=== PATIENT | male | born 1955 | race Caucasian/White ===

== ENCOUNTER → 2016-08-11 | Outpatient (CLI) | payer BC ==
--- NOTE | 2016-08-11 09:01 | CT ---
EXAMINATION TYPE: CT abdomen pelvis w con DATE OF EXAM: 08/11/2016 8:53 AM COMPARISON: NONE HISTORY: 61-year-old male with abdominal pain, evaluate for diverticulitis TECHNIQUE: Contiguous axial scanning of the abdomen and pelvis following administration of 100 ml Omn ipaque 300 IV contrast. Delayed images through the kidneys and coronal/sagittal reconstructions perf ormed. CT DLP: 489.1 mGycm Automated exposure control for dose reduction was used. FINDINGS: Heart is normal size without pericardial effusion. Lung bases are clear without pleural effusion. No focal liver lesion or biliary ductal dilatation. Portal venous system is patent. Gallbladder, adrenal glands, spleen, and pancreas appear within normal limits. Large cyst within the kidneys measuring up to 5.2 cm right upper pole and 8.4 cm in the left upper po le. Smaller hypodense lesions are present on both sides and [address] characterization but also likely represent cysts. There is symmetric uptake and excretion of contrast by both kidneys. No dilated small bowel, free fluid, or free air. Small fatty umbilical hernia. Normal appendix. Oral contrast has progressed to the rectum No significant diverticular disease is identified there is very mild pericolonic fat stranding along the proximal sigmoid colon, axial image 67 that could represent prominent pericolonic vessels. No abn ormal wall thickening is identified. A short segment prominent peristaltic contraction along the dist al sigmoid, axial image 66. Scattered nonenlarged mesenteric lymph nodes are present. Bladder is urine distended. Prostate gland mildly enlarged at 4.7 cm wide. Rectum appears normal. No abnormal fluid collection in the pelvis or pelvic lymphadenopathy seen. Bones: Penile prosthesis demonstrated. Mild degenerative changes of the hips and lower lumbar spine. No osseous destructive process. IMPRESSION: 1. NO SIGNIFICANT DIVERTICULAR DISEASE SEEN. 2. THERE IS VERY MILD PERICOLONIC FAT STRANDING ALONG THE PROXIMAL SIGMOID THAT COULD REPRESENT MILD INFLAMMATION RELATING TO A SHORT SEGMENT COLITIS VERSUS PROMINENT PERICOLONIC VESSELS. 3. ANNULAR NARROWING ALONG THE DISTAL SIGMOID LIKELY A PROMINENT PERISTALTIC CONTRACTION NO ABNORM AL WALL THICKENING IS SEEN HERE. CORRELATE WITH FINDINGS ON PATIENT'S ROUTINE COLONOSCOPY. 4. SMALL FATTY UMBILICAL HERNIA. 5. A LARGE RENAL CYST ON EACH SIDE MEASURING UP TO 8.4 CM ON THE LEFT.
== END | disposition home or self-care (01) ==
LOC: RADCTMAIN 06:44
PROVIDERS: ATTEND Surgery Plastic and Reconstructive Surgery
DX: K56.60 Unspecified intestinal obstruction (principal); K42.9 Umbilical hernia without obstruction or gangrene; N28.1 Cyst of kidney, acquired
CPT/HCPCS: 74177; Q9967

== ENCOUNTER 2016-09-20 06:42 | Day surgery (SDC) | payer BC ==
[2016-09-15 13:46] VITALS: BMI 25.7
[~2016-09-20 06:42] MED LIST: LACTATED RINGERS 1,000 ML IV SCH
[2016-09-20 07:14] VITALS: RESP 16; TEMP 97.6
[2016-09-20] MEDS ORDERED: PROPOFOL 10 MG/ML 20 ML VIAL IV ONE (07:26)
--- NOTE | 2016-09-20 07:27 | P.GSHP ---
History of Present Illness H&P Date: 09/20/16 CHIEF COMPLAINT: GERD HISTORY OF PRESENT ILLNESS: The patient is a 61-year-old male who presents reports gastroesophageal reflux disease. Upper endoscopy was offered for further evaluation and management. PAST MEDICAL HISTORY: Please see list. PAST SURGICAL HISTORY: Please see list. MEDICATIONS: Please see list. ALLERGIES: Please see list. SOCIAL HISTORY: No illicit drug use FAMILY HISTORY: No reports of Crohn disease or ulcerative colitis. REVIEW OF ORGAN SYSTEMS: CONSTITUTIONAL: No reports of fevers or chills. GI: Denies any blood in stools or constipation. PHYSICAL EXAM: VITAL SIGNS: Stable GENERAL: Well-developed and pleasant in no acute distress. HEENT: No scleral icterus. Extraocular movements grossly intact. Moist buccal mucosa. NECK: Supple without lymphadenopathy. CHEST: Unlabored respirations. Equal bilateral excursions. CARDIOVASCULAR: Regular rate and rhythm. Distal 2+ pulses. ABDOMEN: Soft, nondistended. MUSCULOSKELETAL: No clubbing, cyanosis, or edema. ASSESSMENT: 1. Gastroesophageal reflux disease PLAN: 1. Recommend proceeding with an upper endoscopy Past Medical History Past Medical History: Asthma, GERD/Reflux, Hyperlipidemia Additional Past Medical History / Comment(s): hiatal hernia,abdominal hernia, osteoporosis,polycythemia History of Any Multi-Drug Resistant Organisms: None Reported Past Surgical History: Hernia Repair, Orthopedic Surgery Additional Past Surgical History / Comment(s): right elbow surg. left shoulder surg. panreas scar tissue removed. eye surg. left knee repair. inguinal and incisional hernia repair Past Anesthesia/Blood Transfusion Reactions: No Reported Reaction Past Psychological History: No Psychological Hx Reported Smoking Status: Former smoker Past Alcohol Use History: Occasional Additional Past Alcohol Use History / Comment(s): quit smoking 2008,smoked approx 20yrs <1ppd Past Drug Use History: None Reported - Past Family History Mother Family Medical History: Cancer Additional Family Medical History / Comment(s): colon cancer Father Family Medical History: Coronary Artery Disease (CAD) Brother(s) Family Medical History: Coronary Artery Disease (CAD) Medications and Allergies Home Medications Medication Instructions Recorded Confirmed Type Ergocalciferol [Vitamin D2] 50,000 unit PO Q7D 05/12/16 09/20/16 History Ibandronate Sodium [Boniva] 150 mg PO QMONTH 05/12/16 09/20/16 History Multivitamin [Men's Multi-Vitamin] 1 each PO DAILY 05/12/16 09/20/16 History Lovastatin [Mevacor] 40 mg PO DAILY 05/18/16 09/20/16 History Beclomethasone Dip 80 Mcg/Puff 2 puff INHALATION BID 09/15/16 09/20/16 History [Qvar 80 mcg] Diuretic 1 tab PO DAILY 09/15/16 09/20/16 History Ferrous Sulfate [Feosol] 325 mg PO DAILY 09/15/16 09/20/16 History Allergies Allergy/AdvReac Type Severity Reaction Status Date / Time No Known Allergies Allergy Verified 09/15/16 13:36 Surgical - Exam Vital Signs Temp Pulse Resp BP Pulse Ox 97.6 F 66 16 118/78 97 09/20/16 07:12 09/20/16 07:12 09/20/16 07:12 09/20/16 07:12 09/20/16 07:12
--- NOTE | 2016-09-20 07:38 | P.PCN ---
Date of Procedure: 09/20/16 Description of Procedure: PREOPERATIVE DIAGNOSIS: Gastroesophageal reflux disease. Diaphragmatic hiatal hernia without obstruction. POSTOPERATIVE DIAGNOSIS: Gastritis. Gastroesophageal reflux disease. Diaphragmatic hiatal hernia without obstruction. OPERATION: Esophagogastroduodenoscopy with biopsies along antrum. SURGEON: Guadalupe Moore MD ANESTHESIA: MAC. INDICATIONS: The patient is a 61-year-old male who presents with a history of reflux disease. Benefits and risks of the procedure were described. Informed consent was obtained. DESCRIPTION: The patient was brought into the endoscopy suite and laid in the left lateral decubitus position. An Olympus gastroscope was passed along the posterior oropharynx down to the distal esophagus where the squamocolumnar junction was encountered at 40 cm from the incisors. The stomach was entered and retained food reflux was found. Additional findings are listed below. Biopsies with cold forceps were obtained of the antrum. The first through third portion of the duodenum was examined and unremarkable. Retroflexion of the scope confirmed Hill grade 3 lower esophageal valve. The squamocolumnar junction demostrated LA grade A erosive esophagitis. The stomach was desufflated. The patient tolerated the procedure well. FINDINGS: Squamocolumnar junction 39 cm from the incisors. Diaphragmatic hiatus at 40 cm. Hiatal hernia 1 cm. Hill grade 3 lower esophageal valve. LA grade A erosive esophagitis. No active duodenitis. RECOMMENDATIONS: Further recommendations pending results of pathology report. Upper endoscopy as needed. Recommend manometry. Plan - Discharge Summary Discharge Medication List Ergocalciferol [Vitamin D2] 50,000 unit PO Q7D 05/12/16 [History] Ibandronate Sodium [Boniva] 150 mg PO QMONTH 05/12/16 [History] Multivitamin [Men's Multi-Vitamin] 1 each PO DAILY 05/12/16 [History] Lovastatin [Mevacor] 40 mg PO DAILY 05/18/16 [History] Beclomethasone Dip 80 Mcg/Puff [Qvar 80 mcg] 2 puff INHALATION BID 09/15/16 [ History] Diuretic 1 tab PO DAILY 09/15/16 [History] Ferrous Sulfate [Feosol] 325 mg PO DAILY 09/15/16 [History] Follow up Appointment(s)/Referral(s): Guadalupe Moore MD [STAFF PHYSICIAN] - 09/20/16 9:00 am (MANOMETRY ONLY!!!! Scheduled at 9 am At [facility] this morning) Patient Instructions/Handouts: Gastroesophageal Reflux Disease (GEN) Discharge Disposition: HOME SELF-CARE
[2016-09-20 08:07] VITALS: BP 121/76; PULSE 55
== END 2016-09-20 08:30 | disposition home or self-care (01) ==
LOC: ORWHC2ENDO 06:42
PROVIDERS: ATTEND Surgery Plastic and Reconstructive Surgery
DX: K21.0 Gastro-esophageal reflux disease with esophagitis (principal); K44.9 Diaphragmatic hernia without obstruction or gangrene; K29.50 Unspecified chronic gastritis without bleeding; J45.909 Unspecified asthma, uncomplicated; E78.5 Hyperlipidemia, unspecified; M81.0 Age-related osteoporosis without current pathological fracture; Z79.83 Long term (current) use of bisphosphonates; Z79.51 Long term (current) use of inhaled steroids; Z79.899 Other long term (current) drug therapy; Z87.891 Personal history of nicotine dependence; Z80.0 Family history of malignant neoplasm of digestive organs
CPT/HCPCS: 43239; 88305; 88342; J2704

== ENCOUNTER 2016-10-05 19:11 | Inpatient (IN) | payer BC ==
[2016-10-05] MEDS ORDERED: PANTOPRAZOLE 40 MG/10 ML VIAL IV STA (19:31)
[2016-10-05] MEDS ORDERED: CHLORHEXIDINE GLUCONATE 15 ML CUP MUCOUS MEM ONE (19:31)
[2016-10-05] MEDS ORDERED: METOCLOPRAMIDE 5 MG/ML 2 ML VIAL IVP PRN (19:34)
[2016-10-05] MEDS ORDERED: ONDANSETRON 4 MG/2 ML VIAL IVP PRN (19:34)
[2016-10-05] MEDS ORDERED: ACETAMINOPHEN IV (For NPO) 1,000 MG in EMPTY BAG 1 BAG IVPB PRN (19:36)
[2016-10-05 21:59] VITALS: BMI 25.1
[2016-10-05 23:01] LABS: Basophils # (A) 0.1 k/uL (0-0.2); Basophils % (A) 1 %; CH 29.3; CHCM 33.9; Eosinophils # (A) 0.2 k/uL (0-0.7); Eosinophils % (A) 2 %; HCT 50.7 % (39.0-53.0); HDW 2.41; HGB 16.8 gm/dL (13.0-17.5); Luc # (Auto) 0.18; Luc % (Auto) 3; Lymphocytes # (A) 2.1 k/uL (1.0-4.8); Lymphocytes % (A) 29 %; MCH 28.8 pg (25.0-35.0); MCHC 33.2 g/dL (31.0-37.0); MCV 86.8 fL (80.0-100.0); Mean Platelet Volume 7.4; Monocytes # (A) 0.5 k/uL (0-1.0); Monocytes % (A) 7 %; Neutrophils # (A) 4.3 k/uL (1.3-7.7); Neutrophils % (A) 59 %; RBC 5.84 m/uL (4.30-5.90); RDW 13.7 % (11.5-15.5); WBC 7.3 k/uL (3.8-10.6); WBC (Perox) 7.27
[2016-10-05 23:13] LABS: ALT 31 U/L (21-72); AST 22 U/L (17-59); Alkaline Phosphatase 58 U/L (38-126); Anion Gap 10 mmol/L; Blood Urea Nitrogen 22 mg/dL (9-20); Calcium 9.6 mg/dL (8.4-10.2); Carbon Dioxide 27 mmol/L (22-30); Chloride 102 mmol/L (98-107); Glucose 146 mg/dL (74-99); Non-African American GFR(MDRD) >60 (>60 ml/min/1.73 sqM); Potassium 3.3 mmol/L (3.5-5.1); Sodium 139 mmol/L (137-145); Total Bilirubin 0.6 mg/dL (0.2-1.3); Total Protein 6.9 g/dL (6.3-8.2)
[2016-10-05] MEDS: LACTATED RINGERS 1,000 ML IV SCH (23:27)
[2016-10-05] MEDS: HEPARIN SODIUM,PORCINE 5,000 UNIT/ML 1 ML VIAL SQ SCH (23:29)
[2016-10-05] MEDS: HYDROmorphone 1 MG/ML 1 ML SYRINGE IVP PRN (23:36)
[2016-10-06] MEDS: LACTATED RINGERS 1,000 ML IV SCH ×3 (04:51→20:11)
[2016-10-06] MEDS: HYDROmorphone 1 MG/ML 1 ML SYRINGE IVP PRN ×3 (05:12→22:54)
[2016-10-06] MEDS ORDERED: Potassium Replacement Protocol 1 EACH MISC MISCELLANE PRN (07:18)
--- NOTE | 2016-10-06 07:35 | P.GSHP ---
History of Present Illness H&P Date: 10/05/16 Chief Complaint: Esophageal obstruction, abdominal pain CHIEF COMPLAINT: Esophageal obstruction, dysphagia. HISTORY OF PRESENT ILLNESS: Alejandro Delgado is a 61 year-old male with a symptomatic diaphragmatic hiatal hernia. He comes in with worsening dysphagia and now has esophageal obstruction. He reports severe epigastric including periumbilical abdominal pain. He is unable to tolerate anything by mouth. Incidentally, he had completed workup including manometry and previous upper endoscopy which confirmed his hiatal hernia including severe reflux disease. Given the acuity of his symptoms, he has been admitted for urgent surgical intervention. PAST MEDICAL HISTORY: Please see list. PAST SURGICAL HISTORY: Please see list. MEDICATIONS: Please see list. ALLERGIES: Please see list. SOCIAL HISTORY: No illicit drug use FAMILY HISTORY: No reports of Crohn disease or ulcerative colitis. REVIEW OF ORGAN SYSTEMS: Constitutional: No fevers or chills. Musculoskeletal: Joint stiffness including back pain. Respiratory: Asthma. Hematologic: Polycythemia vera. No reports of DVTs. HEENT: Denies any trouble with vision, hearing or nosebleeds. No difficulty swallowing. LYMPHATIC: The patient denies any lumps and bumps around the neck. ENDOCRINE: Denies any thyroid disorders. Denies any blood sugar glucose intolerance. CARDIOVASCULAR: Denies any chest pain, palpitations, or recent heart attacks. GASTROINTESTINAL: Denies fatty food intolerance. Denies change in bowel habits and gas bloat. Has reflux disease. See above. GENITOURINARY: Denies any blood in urine or increased urinary frequency. NEUROLOGIC: Denies any numbness or tingling along the distal extremities. No seizure disorders or headaches. PSYCHIATRIC: Denies any depression or suicidal ideation. PHYSICAL EXAM: GENERAL: Well developed and in some distress. HEENT: No sclera icterus. Extraocular movements grossly intact. Moist buccal mucosa. Head is atraumatic, normocephalic. Hears conversational speech. No nasal drainage. NECK: Supple without lymphadenopathy. No JV distention. CHEST: Non-labored respirations and equal bilateral excursions. CARDIOVASCULAR: Regular rate and rhythm. Palpable 2+ radial pulses. ABDOMEN: Soft. Tender along left lower quadrant and epigastrium as well as periumbilical. MUSCULOSKELETAL: No clubbing, cyanosis or edema. NEUROLOGIC: No focal or lateralizing signs. PSYCH: Appropriate affect. Alert and oriented to person, place and time. STUDIES: CT of the abdomen/pelvis was reviewed in detail and demonstrated inflammation of the left lower quadrant at his hernia site. New onset umbilical hernia identified. ASSESSMENT: 1. History of hiatal hernia, nonincarcerated with esophageal obstruction. 2. History of umbilical hernia. 3. Intraabdominal adhesions. 4. Left lower quadrant abdominal pain. 5. Gastroesophageal reflux disease. 6. Dysphagia. PLAN: 1. Urgent surgical intervention with a laparoscopic repair of incarcerated hiatal hernia advised as he now has esophageal obstruction. 2. Possibility of open technique balloon placement mesh was also reviewed. 3. Inpatient hospitalization with inpatient admission for at least 2 nights. 4. DVT prophylaxis. 5. Antibody prophylaxis. 6. Will need postoperative upper GI. 7. Comprehensive metabolic panel including CBC. 8. Twelve-lead EKG in the interim. 9. Risks of surgical intervention including injury to the lung, injury to the vagus nerves, injury to the esophagus, injury to the stomach, pneumothorax, dysphagia, recurrence, need for further surgery were reviewed. Past Medical History Past Medical History: Asthma, GERD/Reflux, Hyperlipidemia Additional Past Medical History / Comment(s): hiatal hernia,abdominal hernia, osteoporosis,polycythemia History of Any Multi-Drug Resistant Organisms: None Reported Past Surgical History: Hernia Repair, Orthopedic Surgery Additional Past Surgical History / Comment(s): right elbow surg. left shoulder surg. panreas scar tissue removed. eye surg. left knee repair. inguinal and incisional hernia repair Past Anesthesia/Blood Transfusion Reactions: No Reported Reaction Past Psychological History: No Psychological Hx Reported Smoking Status: Former smoker Past Alcohol Use History: Occasional Additional Past Alcohol Use History / Comment(s): quit smoking 2008,smoked approx 20yrs <1ppd Past Drug Use History: None Reported - Past Family History Mother Family Medical History: Cancer Additional Family Medical History / Comment(s): colon cancer Father Family Medical History: Coronary Artery Disease (CAD) Brother(s) Family Medical History: Coronary Artery Disease (CAD) Medications and Allergies Home Medications Medication Instructions Recorded Confirmed Type Ergocalciferol [Vitamin D2] 50,000 unit PO SA 05/12/16 10/05/16 History Ibandronate Sodium [Boniva] 150 mg PO QMONTH 05/12/16 10/05/16 History Multivitamin [Men's Multi-Vitamin] 1 tab PO DAILY 05/12/16 10/05/16 History Lovastatin [Mevacor] 40 mg PO HS 05/18/16 10/05/16 History Beclomethasone Dip 80 Mcg/Puff 2 puff INHALATION RT-BID 09/15/16 10/05/16 History [Qvar 80 mcg] Ferrous Sulfate [Feosol] 325 mg PO DAILY 09/15/16 10/05/16 History Calcium Carbonate [Calcium] 600 mg PO DAILY 10/05/16 10/05/16 History Chlorthalidone [Hygroton] 12.5 mg PO DAILY 10/05/16 10/05/16 History Tadalafil [Cialis] 10 mg PO DAILY PRN 10/05/16 10/05/16 History Allergies Allergy/AdvReac Type Severity Reaction Status Date / Time No Known Allergies Allergy Verified 10/05/16 22:19 Results - Labs 10/05/16 22:46 10/05/16 22:46
[2016-10-06] MEDS: HEPARIN SODIUM,PORCINE 5,000 UNIT/ML 1 ML VIAL SQ SCH ×3 (07:55→23:42)
[2016-10-06] MEDS ORDERED: POTASSIUM CHLORIDE ER 20 MEQ TAB.ER PO SCH (08:00)
[2016-10-06] MEDS ORDERED: POTASSIUM CHLORIDE 10 MEQ, LIDOCAINE 2% INJ 10 MG in SODIUM CHLORIDE 0.9% 100 ML IV SCH (08:00)
[2016-10-06 08:12] LABS: Anion Gap 9 mmol/L; Blood Urea Nitrogen 21 mg/dL (9-20); Calcium 9.3 mg/dL (8.4-10.2); Carbon Dioxide 29 mmol/L (22-30); Chloride 101 mmol/L (98-107); Glucose 94 mg/dL (74-99); Magnesium 1.8 mg/dL (1.6-2.3); Non-African American GFR(MDRD) >60 (>60 ml/min/1.73 sqM); Potassium 4.2 mmol/L (3.5-5.1); Sodium 139 mmol/L (137-145)
[2016-10-06] MEDS: MAGNESIUM SULFATE-D5W PMX 1 GM in DEXTROSE/WATER 1 100ML.BAG IVPB SCH ×2 (08:42→09:47)
[2016-10-06] MEDS ORDERED: ceFAZolin 2 GM in SODIUM CHLORIDE 0.9% 100 ML IVPB ONE (11:00)
[2016-10-06] MEDS ORDERED: HYDROcodone/APAP 5-325MG 1 EACH TAB PO PRN (14:03)
[2016-10-06] MEDS ORDERED: NALOXONE 0.4 MG/ML 1 ML VIAL IV PRN ×2 (14:03→19:46)
--- NOTE | 2016-10-06 14:03 | P.PCN ---
Date of Procedure: 10/06/16 Preoperative Diagnosis: Symptomatic cholelithiasis, epigastric abdominal pain, gastric esophageal reflux disease Postoperative Diagnosis: Same, peritoneal adhesions lower abdomen epigastrium, greater omentum to anterior abdominal wall Procedure(s) Performed: Laparoscopic cholecystectomy, esophagogastroduodenoscopy, laparoscopic lysis of adhesions Anesthesia: GETA, local Surgeon: Guadalupe Moore Estimated Blood Loss (ml): 5 Pathology: other (Gallbladder) Condition: stable Disposition: floor Operative Findings: Early gastric ulcers, gastritis along the antrum, junction 40 cm, low-grade 2 lower esophageal valve, LA grade C erosive esophagitis, moderate intra- abdominal adhesions from previous
[2016-10-06] MEDS ORDERED: KETOROLAC 30 MG/ML 1 ML VIAL IVP SCH (14:15)
[2016-10-06] MEDS ORDERED: IV FLUID CONTINUATION 1,000 ML IV ONE (16:51)
[2016-10-06] MEDS ORDERED: DEXAMETHASONE SOD PHOSPHATE 10 MG/ML 1 ML VIAL IV ONE (17:05)
[2016-10-06] MEDS ORDERED: ONDANSETRON 4 MG/2 ML VIAL IVP ONE (17:07)
[2016-10-06] MEDS ORDERED: ROCURONIUM BROMIDE 10 MG/ML 10 ML VIAL IV ONE (17:23)
[2016-10-06] MEDS ORDERED: NEOSTIGMINE 1 MG/ML 10 ML VIAL ONE (17:23)
[2016-10-06] MEDS ORDERED: HYDROmorphone (PF) 1 MG/ML ONE (17:23)
[2016-10-06] MEDS ORDERED: PROPOFOL 10 MG/ML 20 ML VIAL IV ONE (17:23)
[2016-10-06] MEDS ORDERED: SUCCINYLCHOLINE CHLORIDE 100 MG/5 ML SYR IV ONE (17:23)
[2016-10-06] MEDS ORDERED: MIDAZOLAM 2 MG/2 ML VIAL ONE (17:23)
[2016-10-06] MEDS ORDERED: fentaNYL (PF) 50 MCG/ML 2 ML AMP ONE (17:23)
[2016-10-06] MEDS ORDERED: GLYCOPYRROLATE 0.2 MG/ML 2 ML VIAL ONE (17:23)
[2016-10-06] MEDS ORDERED: LIDOCAINE 1% INJ 10MG/ML (20 ML MDV) ONE (17:23)
[2016-10-06] MEDS ORDERED: LACTATED RINGERS 1,000 ML IV ONE (17:45)
[2016-10-06] MEDS ORDERED: BUPIVACAIN-EPI 0.25%-1:200,000 30 ML VIAL SQ ONE (18:10)
[2016-10-06] MEDS ORDERED: SIMETHICONE 40 MG/0.6 ML DROPS 2,000 MG/30 ML BOTTLE PO PRN (19:46)
[2016-10-06] MEDS ORDERED: HYOSCYAMINE ORAL DROPS 1.875 MG/15 ML BOTTLE PO PRN (19:46)
[2016-10-06] MEDS ORDERED: HYDROcodone/APAP 15 ML SOLUTION PO PRN (19:46)
[2016-10-06] MEDS ORDERED: diphenhydrAMINE 50 MG/ML 1 ML VIAL IVP PRN (19:46)
--- NOTE | 2016-10-06 19:46 | P.PCN ---
Date of Procedure: 10/06/16 Preoperative Diagnosis: Metacarpal hernia, epigastric abdominal pain, dysphagia, diffuse abdominal pain Postoperative Diagnosis: Same, incarcerated umbilical hernia, diaphragmatic hiatal hernia, severe intra- abdominal adhesions Procedure(s) Performed: Laparoscopic lysis of adhesions over 45 minutes greater omentum to the epigastrium, left upper quadrant and lower abdomen; Laparoscopic reduction and repair of incarcerated paraesophageal hiatal hernia 4 cm with 7 x 10 cm [place] Biopatch A; Laparoscopic reduction and repair of incarcerated umbilical hernia with 11.[address] mesh; Intraoperative esophagogastroduodenoscopy Anesthesia: GETA, local (60) Surgeon: Guadalupe Moore Estimated Blood Loss (ml): 30 Pathology: none sent Condition: stable Disposition: floor Operative Findings: Incarcerated diaphragmatic hiatal hernia, 4 cm; severe intra-abdominal adhesions ; incarcerated umbilical hernia; upper endoscopy demonstrating gastritis; thoracic length 15 cm, esophageal length obtained of 4 cm
[2016-10-06] MEDS ORDERED: TAMSULOSIN 0.4 MG CAP.ER.24H PO STA (19:48)
[2016-10-06] MEDS ORDERED: hydrALAZINE HCL 20 MG/ML 1 ML VIAL IVP ONE (20:18)
[2016-10-06] MEDS: HYDROmorphone 1 MG/ML 1 ML SYRINGE IVP ONE ×2 (20:23→20:29)
[2016-10-06] MEDS: 0.9% NACL WITH KCL 20 MEQ/L 1,000 ML IV SCH (20:55)
[2016-10-06 22:46] VITALS: TEMP 97.5
[2016-10-06] MEDS: KETOROLAC 30 MG/ML 1 ML VIAL IVP SCH (23:42)
[2016-10-06] MEDS: ceFAZolin 2 GM in SODIUM CHLORIDE 0.9% 100 ML IVPB SCH (23:42)
[2016-10-07] MEDS: HYDROmorphone 1 MG/ML 1 ML SYRINGE IVP PRN ×3 (02:18→06:47)
[2016-10-07 03:00] VITALS: BP 135/82; PULSE 77; RESP 18
[2016-10-07] MEDS: 0.9% NACL WITH KCL 20 MEQ/L 1,000 ML IV SCH (04:07)
[2016-10-07] MEDS: KETOROLAC 30 MG/ML 1 ML VIAL IVP SCH (05:56)
[2016-10-07] MEDS: LACTATED RINGERS 1,000 ML IV SCH ×2 (06:02→13:12)
--- NOTE | 2016-10-07 07:40 | FL ---
EXAMINATION TYPE: FL UGI DATE OF EXAM: 10/07/2016 7:36 AM COMPARISON: NONE HISTORY: Postop hiatal hernia repair TECHNIQUE: A single contrast UGI study is performed. FINDINGS: The esophagus shows normal motility and emptying into the stomach. No evidence of hiatal hernia or s tricture noted. No obstruction or extravasation. There is extensive amount of retained fluid within t he stomach appears distended. IMPRESSION: No obstruction or extravasation. The stomach was distended with fluid prior to the proced ure correlate clinically.
[2016-10-07 07:45] LABS: Anion Gap 11 mmol/L; Basophils % (A) 0 %; Blood Urea Nitrogen 14 mg/dL (9-20); CHCM 33.1; Calcium 8.4 mg/dL (8.4-10.2); Carbon Dioxide 23 mmol/L (22-30); Chloride 104 mmol/L (98-107); Eosinophils % (A) 0 %; HCT 50.7 % (39.0-53.0); HDW 2.41; HGB 16.5 gm/dL (13.0-17.5); Luc % (Auto) 1; Lymphocytes # (A) 0.4 k/uL (1.0-4.8); Lymphocytes % (A) 4 %; MCH 28.6 pg (25.0-35.0); MCHC 32.6 g/dL (31.0-37.0); MCV 87.9 fL (80.0-100.0); Mean Platelet Volume 7.6; Monocytes # (A) 0.4 k/uL (0-1.0); Monocytes % (A) 4 %; Neutrophils # (A) 9.5 k/uL (1.3-7.7); Neutrophils % (A) 91 %; Non-African American GFR(MDRD) >60 (>60 ml/min/1.73 sqM); Phosphorous 2.7 mg/dL (2.5-4.5); Potassium 4.7 mmol/L (3.5-5.1); RBC 5.77 m/uL (4.30-5.90); RDW 13.6 % (11.5-15.5); Sodium 138 mmol/L (137-145); WBC 10.5 k/uL (3.8-10.6); WBC (Perox) 11.33
[2016-10-07] MEDS ORDERED: BUDESONIDE 1 MG/2 ML NEBU INHALATION SCH (08:00)
[2016-10-07] MEDS ORDERED: 1: MVI, ADULT NO.4 WITH VIT K 10 ML, THIAMINE 100 MG, FOLIC ACID 1 MG, POTASSIUM CHLORID IV SCH ×6 (08:00)
[2016-10-07] MEDS: ceFAZolin 2 GM in SODIUM CHLORIDE 0.9% 100 ML IVPB SCH (08:07)
[2016-10-07] MEDS: HEPARIN SODIUM,PORCINE 5,000 UNIT/ML 1 ML VIAL SQ SCH (08:11)
[2016-10-07] MEDS ORDERED: TAMSULOSIN 0.4 MG CAP.ER.24H PO SCH (08:30)
[2016-10-07] MEDS ORDERED: PANTOPRAZOLE 40 MG/10 ML VIAL IV SCH (09:00)
[2016-10-07] MEDS ORDERED: CHLORTHALIDONE 25 MG TAB PO SCH (09:00)
[2016-10-07] MEDS ORDERED: ENOXAPARIN 40 MG/0.4 ML SYRINGE SQ SCH (09:00)
[2016-10-07] MEDS ORDERED: BECLOMETHASONE DIP 80 MCG/PUFF INHALER INHALATION SCH ×2 (09:03→10:00)
--- NOTE | 2016-10-07 11:29 | P.PN ---
Subjective Principal diagnosis: Status post Vlad The patient is a 61-year-old gentleman status post Vlad fundoplasty and hiatal hernia repair including repair of multiple ventral hernias. His pain is controlled. He does have postop urinary retention. Objective - Vital Signs Vital signs: Vital Signs Temp 97.5 F L 10/07/16 02:58 Pulse 77 10/07/16 02:58 Resp 18 10/07/16 02:58 BP 135/82 10/07/16 02:58 Pulse Ox 97 10/07/16 02:58 Intake & Output 10/06/16 10/07/16 10/07/16 18:59 06:59 18:59 Intake Total 1250 250 Output Total 860 Balance 1250 -610 Intake: IV 1250 175 Oral 75 Output: Urine 850 Straight 600 Estimated Blood Loss 10 Other: Voiding Method Toilet Urinal # Voids 2 - Exam GENERAL: Well developed and in no acute distress. Pleasant. HEENT: No sclera icterus. Extraocular movements grossly intact. Moist buccal mucosa. Head is atraumatic, normocephalic. Hears conversational speech. No nasal drainage. NECK: Supple without lymphadenopathy. No JV distention. CHEST: Non-labored respirations and equal bilateral excursions. CARDIOVASCULAR: Regular rate and rhythm. Palpable 2+ radial pulses. ABDOMEN: Soft. Nondistended. Incisions clean dry and intact. Minimal tenderness along the epigastrium. MUSCULOSKELETAL: No clubbing, cyanosis or edema. NEUROLOGIC: No focal or lateralizing signs. PSYCH: Appropriate affect. Alert and oriented to person, place and time. - Labs CBC & Chem 7: 10/07/16 07:09 10/07/16 07:09 Labs: Abnormal Lab Results - Last 24 Hours (Table) 10/07/16 Range/Units 07:09 Neutrophils # 9.5 H (1.3-7.7) k/uL Lymphocytes # 0.4 L (1.0-4.8) k/uL Assessment and Plan (1) Reflux esophagitis Status: Chronic (2) Dysphagia Status: Acute (3) Paraesophageal hernia with obstruction but no gangrene Status: Acute (4) Urinary retention with incomplete bladder emptying Status: Acute Plan: 1. Clinically, he is stable and may discharge home. 2. He has history of self-catheterization for acute urinary retention. 3. Recommend post-Vlad diet.
--- NOTE | 2016-10-07 12:35 | P.DS ---
Providers Date of admission: 10/05/16 21:21 Expected date of discharge: 10/07/16 Attending physician: Guadalupe Moore Primary care physician: Stated None - Discharge Diagnosis(es) (1) Incarcerated umbilical hernia Status: Acute (2) Peritoneal adhesions Status: Acute (3) Gastritis Status: Acute (4) [place] esophagus Status: Acute (5) Polycythemia vera Status: Acute Hospital Course: POSTOPERATIVE DIAGNOSES: 1. [place] esophagus. 2. Paraesophageal hiatal hernia, incarcerated with obstruction. 3. Epigastric abdominal pain. 4. Gastroesophageal reflux disease. 5. Esophageal dysmotility. 6. Diffuse abdominal pain. 7. Diffuse intra-abdominal peritoneal adhesions. 8. Dysphagia. 9. Asthma. 10. Hyperlipidemia. 11. Polycythemia vera. 12. Osteoporosis. 13. Incarcerated umbilical hernia. 14. Diffuse superficial gastritis. Alejandro Delgado is a 61 year-old male with a symptomatic diaphragmatic hiatal hernia. He comes in with worsening dysphagia and now has esophageal obstruction. He reports severe epigastric including periumbilical abdominal pain. He is unable to tolerate anything by mouth. Incidentally, he had completed workup including manometry and previous upper endoscopy which confirmed his hiatal hernia including severe reflux disease. Given the acuity of his symptoms, he has been admitted for urgent surgical intervention. Intraoperative findings also confirmed incarcerated umbilical hernia and ventral hernia which were also repaired. He had urinary retention for which he has was able to perform self-catheterization. Prior to discharge, he demonstrated understanding of the Vlad diet instructions. Pertinent Studies: Esophagram negative for leak. Procedures: OPERATION: 1. Laparoscopic lysis of adhesions over 45 minutes greater omentum to the epigastrium, left upper quadrant and lower abdomen. 2. Laparoscopic reduction and repair of incarcerated paraesophageal hiatal hernia 4 cm with 7 x 10 cm [place] Biopatch A. 3. Laparoscopic reduction and repair of incarcerated umbilical hernia with 11.[address] mesh. 4. Intraoperative esophagogastroduodenoscopy. Patient Condition at Discharge: Stable Plan - Discharge Summary New Discharge Prescriptions: HYDROcodone/APAP 7.5-325MG [[place] 7.5-325] 1 each PO Q4H PRN #60 tab PRN Reason: Pain Tadalafil [Cialis] 20 mg PO DAILY #30 tab Tamsulosin [Flomax] 0.4 mg PO DAILY #10 cap Discharge Medication List Ergocalciferol [Vitamin D2] 50,000 unit PO SA 05/12/16 [History] Ibandronate Sodium [Boniva] 150 mg PO QMONTH 05/12/16 [History] Multivitamin [Men's Multi-Vitamin] 1 tab PO DAILY 05/12/16 [History] Lovastatin [Mevacor] 40 mg PO HS 05/18/16 [History] Beclomethasone Dip 80 Mcg/Puff [Qvar 80 mcg] 2 puff INHALATION RT-BID 09/15/16 [ History] Ferrous Sulfate [Feosol] 325 mg PO DAILY 09/15/16 [History] Calcium Carbonate [Calcium] 600 mg PO DAILY 10/05/16 [History] Chlorthalidone [Hygroton] 12.5 mg PO DAILY 10/05/16 [History] Tadalafil [Cialis] 10 mg PO DAILY PRN 10/05/16 [History] HYDROcodone/APAP 7.5-325MG [[place] 7.5-325] 1 each PO Q4H PRN #60 tab 10/07/16 [ Rx] Tadalafil [Cialis] 20 mg PO DAILY #30 tab 10/07/16 [Rx] Tamsulosin [Flomax] 0.4 mg PO DAILY #10 cap 10/07/16 [Rx] Follow up Appointment(s)/Referral(s): Guadalupe Moore MD [STAFF PHYSICIAN] - 10/10/16 4:00 pm Patient Instructions/Handouts: Full Liquid Diet (GEN), Laparoscopic Hiatal Hernia Repair (DC), Ventral Hernia Repair (DC) Activity/Diet/Wound Care/Special Instructions: No lifting over 4 pounds for 4 weeks. Discharge Disposition: HOME SELF-CARE
--- NOTE | 2016-10-07 20:29 | P.OP ---
Date of Procedure: 10/06/16 Description of Procedure: SURGEON: SUNDEEP HERNANDEZ MD [employer] ATTENDANT: None. PREOPERATIVE DIAGNOSES: 1. Jackhammer esophagus. 2. Paraesophageal hiatal hernia, incarcerated with obstruction, 4 cm. 3. Epigastric abdominal pain. 4. Gastroesophageal reflux disease. 5. Esophageal dysmotility. 6. Diffuse abdominal pain. 7. History of abdominal adhesions. 8. Dysphagia. 9. Asthma. 10. Hyperlipidemia. 11. Polycythemia vera. 12. Osteoporosis. POSTOPERATIVE DIAGNOSES: 1. Jackhammer esophagus. 2. Paraesophageal hiatal hernia, incarcerated with obstruction. 3. Epigastric abdominal pain. 4. Gastroesophageal reflux disease. 5. Esophageal dysmotility. 6. Diffuse abdominal pain. 7. Diffuse intra-abdominal peritoneal adhesions. 8. Dysphagia. 9. Asthma. 10. Hyperlipidemia. 11. Polycythemia vera. 12. Osteoporosis. 13. Incarcerated umbilical hernia. 14. Diffuse superficial gastritis. OPERATION: 1. Laparoscopic lysis of adhesions over 45 minutes greater omentum to the epigastrium, left upper quadrant and lower abdomen. 2. Laparoscopic reduction and repair of incarcerated paraesophageal hiatal hernia 4 cm with 7 x 10 cm [facility] Biopatch A. 3. Laparoscopic reduction and repair of incarcerated umbilical hernia with 11.[address] mesh. 4. Intraoperative esophagogastroduodenoscopy. ANESTHESIA: General with 60 mL 0.25% Marcaine with epinephrine. ESTIMATED BLOOD LOSS: 30 mL COMPLICATIONS: None. INDICATIONS: The patient is a 61-year-old male presented acutely with epigastric abdominal pain with an incarcerated diaphragmatic hiatal hernia. He has known history of gastroesophageal reflux disease. He had completed an esophageal manometry demonstrating esophageal dysmotility with jackhammer esophagus. He also presents with diffuse abdominal pain and umbilical hernia. Urgent surgical intervention with a paraesophageal hiatal hernia repair, umbilical hernia repair and mesh placement was described. Risks and benefits including but not limited to collapse of the lung, dysphagia, recurrence were reviewed in detail. Informed consent was obtained as all benefits and risks were described. DESCRIPTION: Patient was brought into the operating room, laid in supine position on a split-leg table. After general induction, the abdomen was prepped and draped in a standard sterile fashion using ChloraPrep. An Ioban drape was placed. Cavanaugh catheter was also placed. A timeout protocol was confirmed with the surgical team, for which the patient's name, procedure to be performed including DVT prophylaxis with bilateral SCDs, and preoperative antibiotics were also confirmed. From the xiphoid to the umbilicus, the thoracic length is 15 cm. As he has known history of left lower abdominal pain, a laparoscopic trocar entry was prepared for the right upper quadrant. An incision was made 10 cm distal to the xiphoid using #11 blade after localizing the skin with anesthetic. A 0-degree 5 mm laparoscopic trocar entry was performed to enter the peritoneal cavity. Diagnostic laparoscopy demonstrated no hepatomegaly. Moderate peritoneal adhesions involving the greater omentum to the abdominal wall was found along the left upper and lower abdomen to his previous mesh repair. A 5 mm trocar was placed along the right lateral abdominal wall. Exensive laparoscopic lysis of adhesions using Kitner including Sonicision was performed for over 45 minutes to address all adhesions. At the umbilicus, an incarcerated hernia involving the greater omentum of 2 cm was identified and released. Using a Ray-Giovanni sponge, blood within the abdomen was absorbed from the abdomen. Next, another 5 mm trocar was placed along the left lateral abdominal wall and 11-mm trocar at the left mid-clavicular line at the left costal margin. All trocars were placed after anesthetizing the skin. A Bipin medium-sized liver retractor was placed below the xiphoid and held in place using an iron international freight forwarder. The patient was placed in steep reverse Trendelenburg position. Initial attention was brougth at the hiatus. An incision was made along the gastrohepatic ligament using Sonicision. Circumferentially, the phrenoesophageal ligament and the hiatus were mobilized such that the right and left shayla were visualized. The final defect was 4 cm in size. The distal esophagus intra-abdominal length of 4 cm was obtained. The bilateral vagi nerves were identified and freed from harm during this portion of dissection. To adequately mobilize the posterior esophagus, the greater curvature of the stomach was mobilized along the short gastrics. The hiatus was reapproximated using 2-0 Surgidac on an Endo Stitch with a [id number] suture and one single stitch posteriorly. [facility] Biopatch A 8 x 8 cm was cut in a "tolentino-hole fashion" in place as an onlay and buttressed to the posterior hiatal hernia repair. The mesh was tacked to the left shayla using 2-0 Surgidac. The hiatal repair was consistent with a 56-Zimbabwean bougie as a fenestrated grasper had easily passed through the repair. I then went to the head of the bed to do an intraoperative esophagogastroduodenoscopy. The squamocolumnar junction laid into the intra- abdominal cavity. Additionally no injury to the stomach or esophagus was identified. No gastric or duodenal ulcers were found. Moderate superficial gastritis without bleeding was identified. Retroflexion of the scope confirmed a Hill grade 2 lower esophageal valve. The stomach was desufflated. This concluded endoscopic portion procedure. Attention was then brought to the abdominal wall, whereby along the umbilicus a small defect of approximately 2 cm was encountered. The abdominal fat was cleaned from the abdominal wall for application of a Ventralight mesh. A peritoneal block of 60 mL 0.25% Marcaine with epinephrine was placed along the hernias to minimize postoperative pain. Next, the Ventralight ST mesh was placed into the abdominal cavity after placing a loop of 1-0 Prolene at the epicenter. A Abdias-Ruth was used to draw the loop of the central portion of the mesh through the skin. On the periphery, Sorbafix tackers were placed including along the body of the mesh 1 cm apart. All instruments and pneumoperitoneum were evacuated from the abdominal cavity. The incisions were reapproximated using 4-0 Monocryl for the subcuticular skin. Total of 60 mL 0.25% Marcaine with epinephrine was infiltrated to all wounds for postop analgesia. Dermabond was applied to the skin. At the end of the procedure, needle, sponge, and instrument count was verified correct by neurosurgical nurse. Intraoperative films were taken and shared with the patient's family. FINDINGS: 1. 4 cm paraesophageal hiatal hernia, incarcerated type. 2. [facility] Biopatch A 8 x 8 cm used for hernioplasty of the hiatus. 3. Severe intra-abdominal adhesions throughout the abdomen. 4. Incarcerated umbilical hernia. 5. Upper endoscopy demonstrating diffuse gastritis. 6. Thoracic length 15 cm. 7. Intra-abdominal esophageal length, 4 cm.
[2016-10-08] MEDS ORDERED: BISACODYL 5 MG TABLET.DR PO PRN (08:00)
== END 2016-10-07 13:20 | disposition home or self-care (01) | DRG 327 ==
LOC: 3SUR 21:21
PROVIDERS: ADMIT Surgery Plastic and Reconstructive Surgery; ATTEND Surgery Plastic and Reconstructive Surgery
PROC: 0BUR4JZ (ICD-10-PCS; 2016-10-06)
PROC: 0DNW4ZZ Release Peritoneum, Percutaneous Endoscopic Approach (ICD-10-PCS; 2016-10-06)
PROC: 0WQF4ZZ Repair Abdominal Wall, Percutaneous Endoscopic Approach (ICD-10-PCS; 2016-10-06)
PROC: 0DJ08ZZ Inspection of Upper Intestinal Tract, Via Natural or Artificial Opening Endoscopic (ICD-10-PCS; 2016-10-06)
PROC: 0BUS4JZ (ICD-10-PCS; principal; 2016-10-06 10:00)
DX: K44.0 Diaphragmatic hernia with obstruction, without gangrene (principal); K22.10 Ulcer of esophagus without bleeding; K42.0 Umbilical hernia with obstruction, without gangrene; K25.9 Gastric ulcer, unspecified as acute or chronic, without hemorrhage or perforation; D45 Polycythemia vera; E78.5 Hyperlipidemia, unspecified; J45.909 Unspecified asthma, uncomplicated; K21.9 Gastro-esophageal reflux disease without esophagitis; K22.2 Esophageal obstruction; K22.4 Dyskinesia of esophagus; K29.70 Gastritis, unspecified, without bleeding; K66.0 Peritoneal adhesions (postprocedural) (postinfection); M81.0 Age-related osteoporosis without current pathological fracture; R13.10 Dysphagia, unspecified; M54.9 Dorsalgia, unspecified; Z87.891 Personal history of nicotine dependence; Z79.82 Long term (current) use of aspirin; Z82.49 Family history of ischemic heart disease and other diseases of the circulatory system
CPT/HCPCS: 74240; 80048; 80051; 80053; 82310; 82565; 83735; 84100; 84520; 85025; 93005; 94640

== ENCOUNTER → 2017-08-08 | Outpatient (CLI) | payer BC ==
[2017-08-08 16:17] LABS: HCT 50.5 % (39.0-53.0); HGB 16.5 gm/dL (13.0-17.5); MCH 28.8 pg (25.0-35.0); MCHC 32.7 g/dL (31.0-37.0); MCV 88.2 fL (80.0-100.0); Mean Platelet Volume 6.8; Platelet Count 208 k/uL (150-450); RBC 5.73 m/uL (4.30-5.90); RDW 13.4 % (11.5-15.5); WBC 6.5 k/uL (3.8-10.6)
[2017-08-08 16:22] LABS: ALT 31 U/L (21-72); AST 25 U/L (17-59); Albumin 4.9 g/dL (3.5-5.0); Alkaline Phosphatase 59 U/L (38-126); Anion Gap 12 mmol/L; Blood Urea Nitrogen 29 mg/dL (9-20); Calcium 10.8 mg/dL (8.4-10.2); Carbon Dioxide 30 mmol/L (22-30); Chloride 100 mmol/L (98-107); Glucose 92 mg/dL (74-99); INR 1.1 (<1.2); Potassium 4.6 mmol/L (3.5-5.1); Prothrombin Time 10.4 sec (9.0-12.0); Sodium 142 mmol/L (137-145); Total Bilirubin 0.7 mg/dL (0.2-1.3); Total Protein 7.7 g/dL (6.3-8.2)
== END | disposition home or self-care (01) ==
LOC: LABPAT 15:39
PROVIDERS: ATTEND Surgery Plastic and Reconstructive Surgery
DX: K40.90 Unilateral inguinal hernia, without obstruction or gangrene, not specified as recurrent (principal); K43.9 Ventral hernia without obstruction or gangrene
CPT/HCPCS: 80053; 85027; 85610; 86850; 86900; 86901

== ENCOUNTER 2017-08-17 08:23 | Day surgery (SDC) | payer BC ==
[2017-08-09 11:00] VITALS: BMI 25.1
--- NOTE | 2017-08-17 07:50 | P.GSHP ---
History of Present Illness H&P Date: 08/17/17 CHIEF COMPLAINT: Ventral and inguinal hernia. HISTORY OF PRESENT ILLNESS: The patient is a 62-year-old male who presents with a history of swelling and pain along the pelvis. He's noted increased swelling including pain of the area. He also comes in with new pain along the bilateral groin. Now he presents for repair. PAST MEDICAL HISTORY: Please see list. PAST SURGICAL HISTORY: Please see list. MEDICATIONS: Please see list. ALLERGIES: Please see list. SOCIAL HISTORY: No illicit drug use FAMILY HISTORY: No reports of Crohn disease or ulcerative colitis. REVIEW OF ORGAN SYSTEMS: CONSTITUTIONAL: No reports of fevers or chills. No reports of weight loss despite prior attempts. GI: Denies any blood in stools or constipation. PHYSICAL EXAM: VITAL SIGNS: Stable GENERAL: Well-developed pleasant male in no acute distress. HEENT: No scleral icterus. Extraocular movements grossly intact. Moist buccal mucosa. NECK: Supple without lymphadenopathy. CHEST: Unlabored respirations. Equal bilateral excursions. CARDIOVASCULAR: Regular rate and rhythm. Distal 2+ pulses. ABDOMEN: Soft, nondistended. No peritoneal signs. Palpable defect of the lower pelvis and bilateral groin. MUSCULOSKELETAL: No clubbing, cyanosis, or edema. ASSESSMENT: 1. Ventral hernia. 2. Bilateral inguinal hernia. PLAN: 1. Recommend proceeding with robotic ventral hernia repair with possible bilateral inguinal repair with mesh. 2. Benefits and risks of surgical intervention was discussed including possibility of open technique. 3. May need overnight observation pending anticipated postoperative pain. 4. DVT prophylaxis. 5. Antibiotic prophylaxis. Past Medical History Past Medical History: Asthma, Blood Disorder, GERD/Reflux, Hyperlipidemia Additional Past Medical History / Comment(s): HAS DISORDER WHERE HE LOOSES CALCIUM. TAKES HYGROTEN R/T THIS,osteoporosis,polycythemia, HAS URETHRAL STENT , DO NOT PLACE VILLALTA CATH WHILE PATIENT AWAKE. History of Any Multi-Drug Resistant Organisms: None Reported Past Surgical History: Hernia Repair, Orthopedic Surgery Additional Past Surgical History / Comment(s): REPAIR HIATAL HERNIA, UMB. HERNIA REPAIR, AND LYSIS OF ADHESIONS right elbow surg.left shoulder surg.panreas scar tissue removed.eye surg,left knee repair,inguinal and incisional hernia repair Past Anesthesia/Blood Transfusion Reactions: No Reported Reaction Smoking Status: Former smoker - Past Family History Mother Family Medical History: Cancer Additional Family Medical History / Comment(s): colon cancer Father Family Medical History: Coronary Artery Disease (CAD) Brother(s) Family Medical History: Coronary Artery Disease (CAD) Medications and Allergies Home Medications Medication Instructions Recorded Confirmed Type Ergocalciferol [Vitamin D2] 50,000 unit PO SA 05/12/16 08/09/17 History Multivitamin [Men's Multi-Vitamin] 1 tab PO DAILY 05/12/16 08/09/17 History Lovastatin [Mevacor] 40 mg PO HS 05/18/16 08/09/17 History Beclomethasone Dip 80 Mcg/Puff 2 puff INHALATION RT-BID 09/15/16 08/09/17 History [Qvar 80 mcg] Ferrous Sulfate [Feosol] 325 mg PO DAILY 09/15/16 08/09/17 History Calcium Carbonate [Calcium] 600 mg PO DAILY 10/05/16 08/09/17 History Chlorthalidone [Hygroton] 12.5 mg PO DAILY 10/05/16 08/09/17 History Tadalafil [Cialis] 20 mg PO Q48H 08/09/17 08/09/17 History Allergies Allergy/AdvReac Type Severity Reaction Status Date / Time No Known Allergies Allergy Verified 08/09/17 10:44
[~2017-08-17 08:23] MED LIST changes: +HEPARIN SODIUM,PORCINE 5,000 UNIT/ML 1 ML VIAL SQ ONE; +HYDROmorphone 0.5 MG/0.5 ML SYRINGE IVP PRN; +MORPHINE SULFATE 4 MG/ML SYRINGE IV PRN
[2017-08-17] MEDS ORDERED: LIDOCAINE 1% 20 ML VIAL (10MG/ML) FOR IV START INTRADERMA ONE (09:35)
[2017-08-17] MEDS ORDERED: ONDANSETRON 4 MG/2 ML VIAL IVP ONE (09:36)
[2017-08-17] MEDS ORDERED: DEXAMETHASONE SOD PHOSPHATE 10 MG/ML 1 ML VIAL IV ONE (09:36)
[2017-08-17] MEDS ORDERED: PROPOFOL 10 MG/ML 20 ML VIAL IV ONE (10:33)
[2017-08-17] MEDS ORDERED: MIDAZOLAM 2 MG/2 ML VIAL ONE (10:33)
[2017-08-17] MEDS ORDERED: fentaNYL (PF) 50 MCG/ML 2 ML AMP ONE (10:33)
[2017-08-17] MEDS ORDERED: NEOSTIGMINE 1 MG/ML 10 ML VIAL ONE (10:33)
[2017-08-17] MEDS ORDERED: ROCURONIUM BROMIDE 10 MG/ML 10 ML VIAL IV ONE (10:33)
[2017-08-17] MEDS: ceFAZolin IN SWFI 2 GM/20 ML SYRINGE IVP ONE ×2 (10:33→10:59)
[2017-08-17] MEDS ORDERED: LIDOCAINE 1% INJ 10MG/ML (20 ML MDV) ONE (10:33)
[2017-08-17] MEDS ORDERED: SUCCINYLCHOLINE CHLORIDE 100 MG/5 ML SYR IV ONE (10:33)
[2017-08-17] MEDS ORDERED: GLYCOPYRROLATE 0.2 MG/ML 2 ML VIAL ONE (10:33)
[2017-08-17] MEDS ORDERED: BUPIVACAINE (PF) 0.25% 30 ML VIAL SQ ONE (10:59)
[2017-08-17] MEDS ORDERED: LACTATED RINGERS 1,000 ML IV ONE (12:12)
[2017-08-17 14:09] VITALS: TEMP 98.1
[2017-08-17] MEDS ORDERED: TAMSULOSIN 0.4 MG CAP.ER.24H PO STA (14:09)
--- NOTE | 2017-08-17 14:09 | P.PCN ---
Date of Procedure: 08/17/17 Preoperative Diagnosis: History of bilateral inguinal swelling, previous history of ventral hernia repairs, left lower quadrant abdominal pain Postoperative Diagnosis: Severe intra-abdominal peritoneal adhesions greater omentum to the abdominal wall, initial right inguinal hernia, recurrent left inguinal hernia, both direct ; right inguinal lipoma Procedure(s) Performed: Robotic-assisted extensive lysis of adhesions over 1 hour of greater omentum to abdominal wall, repair of direct right inguinal hernia, repair of left direct inguinal hernia with mesh, removal of right inguinal lipoma Anesthesia: JENNYA, local Surgeon: Guadalupe Moore Estimated Blood Loss (ml): 10 Pathology: other (Right inguinal lipoma, left inguinal hernia sac) Condition: stable Disposition: same day Operative Findings: Severe intra-abdominal adhesions of greater omentum to anterior abdominal wall, left direct inguinal hernia, right direct inguinal hernia over 4 cm, no recurrence of left indirect inguinal hernia
[2017-08-17] MEDS ORDERED: KETOROLAC 30 MG/ML 1 ML VIAL IVP ONE (14:10)
[2017-08-17] MEDS ORDERED: hydrALAZINE HCL 20 MG/ML 1 ML VIAL IVP ONE (14:22)
[2017-08-17] MEDS ORDERED: HYDROcodone/APAP 5-325MG 1 EACH TAB PO ONE (15:24)
[2017-08-17 17:02] VITALS: BP 105/67; PULSE 70; RESP 16
--- NOTE | 2017-09-23 20:48 | P.OP ---
Date of Procedure: 08/17/17 Description of Procedure: SURGEON: SUNDEEP MOORE MD PRIVATE DUTY LPN: 1. TIARA MEJIA PREOPERATIVE DIAGNOSES: 1. History of bilateral inguinal swelling 2. Previous history of ventral incisional hernia repairs 3. Left lower quadrant abdominal pain 4. Polycythemia vera 5. Osteoporosis. 6. Gastroesophageal reflux disease. 7. Asthma. 8. Urethral stricture. 9. Urinary obstructive disorder. POSTOPERATIVE DIAGNOSES: 1. History of bilateral inguinal swelling 2. Previous history of ventral incisional hernia repairs 3. Left lower quadrant abdominal pain 4. Polycythemia vera 5. Osteoporosis. 6. Gastroesophageal reflux disease. 7. Asthma. 8. Initial right inguinal hernia, direct right inguinal hernia, Nyhus type III 9. Recurrent left inguinal hernia, direct, Nyhus IV. 10. Incarcerated right inguinal lipoma. 11. Severe intra-abdominal peritoneal adhesions greater omentum to the abdominal wall initial right inguinal hernia 12. Right inguinal lipoma 13. Urethral stricture. 14. Urinary obstructive disorder. OPERATION: 1. Robotic-assisted da Juan Xi laparoscopic bilateral inguinal hernia repair with mesh, 11.[address] 2. Robotic-assisted da Juan Xi extensive lysis of adhesions over 1 hour of greater omentum to abdominal wall 3. Robotic-assisted da Juan Xi laparoscopic excision of incarcerated right inguinal lipoma. ANESTHESIA: General with local anesthetic ESTIMATED BLOOD LOSS: 10 mL. SPECIMENS REMOVED: other (Right inguinal lipoma, left inguinal hernia sac) COMPLICATIONS: None. Condition: stable Disposition: same day INDICATIONS: The patient is a 62-year-old gentleman who presents with history of right groin swelling. He has a personal history of previous left inguinal hernia repair. Now presents for definitive surgical intervention. Laparoscopic versus open and robotic approaches were discussed. Benefits and risks including bleeding, infection, and injury to the vas deferens as well as sterility and chronic groin pain were reviewed. Placement of mesh was also described. Informed consent was obtained. DESCRIPTION: In the preoperative area, the patient was marked with indelible marker along the inguinal hernia. The patient was brought to the operating room and initially laid in supine position. The abdomen had been prepped and draped in standard sterile fashion. Ioban draping was also placed. Cavanaugh catheter was avoided as her reports history of urethral stricture. Prior to incision, a timeout protocol was confirmed with surgical team regarding patient's name including procedures to be performed and location along the right groin. Initial positioning for the robotic assisted ports were selected whereby 20 cm superior to the target anatomy, 0 degree 5 mm laparoscopic trocar entry was performed at the left upper quadrant. The abdomen was insufflated to 15 mmHg which he had tolerated well. Diagnostic laparoscopy demonstrated severe intra-abdominal adhesions of the greater omentum to the abdominal wall involving the epigastrium including left lower quadrant and right lower quadrant. Additionally, 4 cm direct inguinal hernia along the right groin was found. Next, along the epigastrium, 8 mm robot trocar was placed. An 8-mm robotic trocar was placed under direct visualization at the right upper quadrant. The 5 mm port was exchanged for an 8 mm trocar. All trocars were positioned between 8 to 10-cm apart from each other. The [email or web address] XI robot was primed, draped, prepared for docking along the left side of the patient. I then went to the 3C Plus Xi console. The occupational therapist assistants was at bedside for exchange of the robot arms and equipment. Along the abdominal wall, extensive lysis of adhesions over 1 hour was performed using blunt dissection including vessel sealer. Previous mesh repair of the epigastrium was found and also similarly resected from adhesions. Adhesions were also identified along the left lower quadrant with adhesions also resected. At the right groin, a 4 cm direct inguinal hernia was identified lateral to the epigastric vessels. The hernia sac was evaginated whereby the peritoneum was scored using Endo scissors with cautery. Once completely reduced into the abdominal cavity, the peritoneal sac of the hernia was stripped and a lipoma of the right groin was reduced. The sac was resected and then passed off for further pathological analysis. The size of the hernia defect was 4 cm with intraoperative films obtained. Using a 2-0 Surgidac, the peritoneal defect of the right inguinal hernia site was closed using a pursestring suture of 2-0 Surgidac. The defect was found to be completely closed with complete reduction of the right inguinal hernia was confirmed. As an onlay, an 11.[address] mesh by [employer] was initially cut in half and entered into the abdominal cavity via the 8 mm trocar. The mesh was tacked to the pelvis using 2-0 VLOC x 9-inch length sutures. At the left groin, no recurrence of his initial left indirect hernia was found. A 2 cm direct inguinal hernia was identified lateral to the epigastric vessels. The hernia sac was evaginated whereby the peritoneum was scored using Endo scissors with cautery. The size of the hernia defect was 2 cm with intraoperative films obtained. Using a 2-0 Surgidac, the peritoneal defect of the right inguinal hernia site was closed using a pursestring suture of 2-0 Surgidac. The defect was found to be completely closed with complete reduction of the left inguinal hernia was confirmed. As an onlay, an 11.[address] mesh by [employer] was initially cut in half and entered into the abdominal cavity via the 8 mm trocar. The mesh was tacked to the pelvis using 2-0 VLOC x 9-inch length suture The robot was undocked from the patient's bedside. I then rescrubbed into the case. The fascial defect was reapproximated using 0-Vicryl and a Abdias Ruth. Insufflation was released from the abdominal cavity and all instruments were removed from the abdominal cavity. The rest of incisions were reapproximated using 4-0 Monocryl in a running subcuticular fashion. Local anesthetic was placed along the incision including bilateral groin block. Incisions were cleansed using dilute hydrogen peroxide. Dermabond was applied to the skin. At the end of the procedure, the needle, sponge and instrument counts had been verified correct by the director surgical. The patient had tolerated the procedure well and was taken to the postanesthesia care unit in stable condition. FINDINGS: 1. No Cavanaugh catheter placed as patient voided prior to surgery with history of urethral stricture 2. Severe intra-abdominal adhesions of greater omentum to anterior abdominal wall 3. Left direct inguinal hernia, recurrent 4. Right direct inguinal hernia over 4 cm 5. No recurrence of left indirect inguinal hernia Plan - Discharge Summary Discharge Rx Participant: Yes New Discharge Prescriptions: New Tamsulosin [Flomax] 0.4 mg PO ONCE #5 cap.er.24h HYDROcodone/APAP 5-325MG [Marion 5-325] 1 tab PO Q6HR PRN #20 tab PRN Reason: Pain Continue Ergocalciferol [Vitamin D2 (DRISDOL)] 50,000 unit PO SA Multivitamin [Men's Multi-Vitamin] 1 tab PO DAILY Lovastatin [Mevacor] 40 mg PO HS Ferrous Sulfate [Iron (65 MG Elemental)] 325 mg PO DAILY Beclomethasone Dip 80 Mcg/Puff [Qvar 80 mcg] 2 puff INHALATION RT-BID Chlorthalidone [Hygroton] 12.5 mg PO DAILY Calcium Carbonate [Calcium] 600 mg PO DAILY Tadalafil [Cialis] 20 mg PO Q48H Discharge Medication List Ergocalciferol [Vitamin D2 (DRISDOL)] 50,000 unit PO SA 05/12/16 [History] Multivitamin [Men's Multi-Vitamin] 1 tab PO DAILY 05/12/16 [History] Lovastatin [Mevacor] 40 mg PO HS 05/18/16 [History] Beclomethasone Dip 80 Mcg/Puff [Qvar 80 mcg] 2 puff INHALATION RT-BID 09/15/16 [ History] Ferrous Sulfate [Iron (65 MG Elemental)] 325 mg PO DAILY 09/15/16 [History] Calcium Carbonate [Calcium] 600 mg PO DAILY 10/05/16 [History] Chlorthalidone [Hygroton] 12.5 mg PO DAILY 10/05/16 [History] Tadalafil [Cialis] 20 mg PO Q48H 08/09/17 [History] HYDROcodone/APAP 5-325MG [Marion 5-325] 1 tab PO Q6HR PRN #20 tab 08/17/17 [Rx] Tamsulosin [Flomax] 0.4 mg PO ONCE #5 cap.er.24h 08/17/17 [Rx] Follow up Appointment(s)/Referral(s): Sundeep Moore MD [STAFF PHYSICIAN] - 08/22/17 3:00 pm ([place]) Patient Instructions/Handouts: *Surgery [facility] - (Anesthesia) Discharge Instructions Outpatient Surgery, Laparoscopic Herniorrhaphy (DC) Activity/Diet/Wound Care/Special Instructions: No lifting over 4 pounds in 2 weeks. No bathtub soaks. May shower tomorrow. Discharge Disposition: HOME SELF-CARE
== END 2017-08-17 18:18 | disposition home or self-care (01) ==
LOC: OR 08:23
PROVIDERS: ATTEND Surgery Plastic and Reconstructive Surgery
DX: K40.90 Unilateral inguinal hernia, without obstruction or gangrene, not specified as recurrent (principal); K40.91 Unilateral inguinal hernia, without obstruction or gangrene, recurrent; K66.0 Peritoneal adhesions (postprocedural) (postinfection); D17.1 Benign lipomatous neoplasm of skin and subcutaneous tissue of trunk; D75.1 Secondary polycythemia; N13.8 Other obstructive and reflux uropathy; Z96.0 Presence of urogenital implants; E78.5 Hyperlipidemia, unspecified; D75.89 Other specified diseases of blood and blood-forming organs; J45.909 Unspecified asthma, uncomplicated; Z87.891 Personal history of nicotine dependence; K21.9 Gastro-esophageal reflux disease without esophagitis; M81.0 Age-related osteoporosis without current pathological fracture; Z80.0 Family history of malignant neoplasm of digestive organs; Z79.51 Long term (current) use of inhaled steroids; Z79.899 Other long term (current) drug therapy
CPT/HCPCS: 49650; S2900; 83970; 86850; 86900; 86901; 88302

== ENCOUNTER 2018-03-18 12:37 | Day surgery (SDC) | payer BC ==
[2018-03-14 14:33] VITALS: BMI 25.8
--- NOTE | 2018-03-17 17:04 | P.GSHP ---
History of Present Illness H&P Date: 03/18/18 CHIEF COMPLAINT: GERD and colon screen HISTORY OF PRESENT ILLNESS: The patient is a 62-year-old male who presents with gastroesophageal reflux disease and need for colon screen. Upper and lower endoscopy were offered for further evaluation and management. PAST MEDICAL HISTORY: Please see list. PAST SURGICAL HISTORY: Please see list. MEDICATIONS: Please see list. ALLERGIES: Please see list. SOCIAL HISTORY: No illicit drug use FAMILY HISTORY: No reports of Crohn disease or ulcerative colitis. REVIEW OF ORGAN SYSTEMS: CONSTITUTIONAL: No reports of fevers or chills. GI: Denies any blood in stools or constipation. PHYSICAL EXAM: VITAL SIGNS: Stable GENERAL: Well-developed pleasant in no acute distress. HEENT: No scleral icterus. Extraocular movements grossly intact. Moist buccal mucosa. NECK: Supple without lymphadenopathy. CHEST: Unlabored respirations. Equal bilateral excursions. CARDIOVASCULAR: Regular rate and rhythm. Distal 2+ pulses. ABDOMEN: Soft, nondistended. MUSCULOSKELETAL: No clubbing, cyanosis, or edema. ASSESSMENT: 1. Gastroesophageal reflux disease 2. Colon screen. PLAN: 1. Recommend proceeding with an upper and lower endoscopy Past Medical History Past Medical History: Asthma, Hyperlipidemia Additional Past Medical History / Comment(s): osteoporosis,polycythemia History of Any Multi-Drug Resistant Organisms: None Reported Past Surgical History: Hernia Repair, Orthopedic Surgery Additional Past Surgical History / Comment(s): right elbow surg. left shoulder surg. pancreas scar tissue removed. eye surg, 2 inguinal,abdominal,hiatal, umiblical. left knee repair arthroscopy Past Anesthesia/Blood Transfusion Reactions: No Reported Reaction Smoking Status: Former smoker - Past Family History Mother Family Medical History: Cancer Additional Family Medical History / Comment(s): colon cancer Father Family Medical History: Coronary Artery Disease (CAD) Brother(s) Family Medical History: Coronary Artery Disease (CAD) Medications and Allergies Home Medications Medication Instructions Recorded Confirmed Type Ergocalciferol [Vitamin D2 50,000 unit PO SA 05/12/16 03/14/18 History (DRISDOL)] Multivitamin [Men's Multi-Vitamin] 1 tab PO DAILY 05/12/16 03/14/18 History Lovastatin [Mevacor] 40 mg PO HS 05/18/16 03/14/18 History Beclomethasone Dip 80 Mcg/Puff 2 puff INHALATION RT-BID 09/15/16 03/14/18 History [Qvar 80 mcg] Ferrous Sulfate [Iron (65 MG 325 mg PO DAILY 09/15/16 03/14/18 History Elemental)] Calcium Carbonate [Calcium] 600 mg PO DAILY 10/05/16 03/14/18 History Chlorthalidone [Hygroton] 12.5 mg PO DAILY 10/05/16 03/14/18 History Tadalafil [Cialis] 20 mg PO Q48H 08/09/17 03/14/18 History Allergies Allergy/AdvReac Type Severity Reaction Status Date / Time chlorhexidine Allergy Rash/Hives Verified 03/14/18 14:24
[~2018-03-18 12:37] MED LIST changes: -HEPARIN SODIUM,PORCINE 5,000 UNIT/ML 1 ML VIAL SQ ONE; -HYDROmorphone 0.5 MG/0.5 ML SYRINGE IVP PRN; -MORPHINE SULFATE 4 MG/ML SYRINGE IV PRN
[2018-03-18 13:42] VITALS: TEMP 98
[2018-03-18] MEDS ORDERED: LIDOCAINE 1% 20 ML VIAL (10MG/ML) FOR IV START INTRADERMA ONE (13:42)
[2018-03-18] MEDS ORDERED: PROPOFOL 10 MG/ML 20 ML VIAL IV ONE (14:17)
[2018-03-18 14:48] VITALS: PULSE 50
--- NOTE | 2018-03-18 14:48 | P.PCN ---
Date of Procedure: 03/18/18 Description of Procedure: PREOPERATIVE DIAGNOSIS: Personal history of colon polyps High-risk colonoscopy screening POSTOPERATIVE DIAGNOSIS: Personal history of colon polyps High-risk colonoscopy screening Sigmoid diverticulosis, mild, without diverticulitis Tubular adenoma descending colon OPERATION: Colonoscopy to the ileocecal valve and appendiceal orifice. Colonoscopy with hot snare polypectomy at descending colon SURGEON: Guadalupe Moore MD. ANESTHESIA: MAC. INDICATIONS: The patient is a 62-year-old male who presents for colonoscopy screening. She has personal history of high risk colon polyps. Last colonoscopy over 3-5 years ago. Benefits and risks were described and informed consent was obtained. DESCRIPTION OF PROCEDURE: The patient had undergone Gatorade, MiraLAX and Dulcolax prep. He had been brought into the operating room and laid in the left lateral decubitus position. The prostate was smooth and without abnormalities. After adequate intravenous sedation, the rectum was examined with 2% lidocaine jelly. No external hemorrhoids were encountered. The rectal tone was within normal limits. No lesions were palpated in the rectal vault. An Olympus colonoscope was advanced until the ileocecal valve and appendiceal orifice were clearly viewed. The prep was fair with visualization of the mucosal folds. The scope was removed with visualization of each mucosal fold. Scattered diverticulosis was encountered. Flat tubular adenoma 6 mm snare polypectomy at descending colon. No evidence of focal colitis was found. Retroflexion of the scope demonstrated no internal hemorrhoids without active bleeding or inflammation. The colon was desufflated. The patient had tolerated the procedure well. Withdrawal time was over 6 minutes. FINDINGS: No internal hemorrhoids No external hemorrhoids No arteriovenous malformations Sigmoid diverticulosis without diverticulitis Removal of 1 polyp: - Snare polypectomy flat tubular adenoma 6 mm snare polypectomy at descending colon. No focal colitis. RECOMMENDATIONS: Given high risk colon screen, recommend repeat colonoscopy 3 years, 2020 Plan - Discharge Summary New Discharge Prescriptions: No Action Ergocalciferol [Vitamin D2 (DRISDOL)] 50,000 unit PO SA Multivitamin [Men's Multi-Vitamin] 1 tab PO DAILY Lovastatin [Mevacor] 40 mg PO HS Ferrous Sulfate [Iron (65 MG Elemental)] 325 mg PO DAILY Beclomethasone Dip 80 Mcg/Puff [Qvar 80 mcg] 2 puff INHALATION RT-BID Chlorthalidone [Hygroton] 12.5 mg PO DAILY Calcium Carbonate [Calcium] 600 mg PO DAILY Tadalafil [Cialis] 20 mg PO Q48H Discharge Medication List Ergocalciferol [Vitamin D2 (DRISDOL)] 50,000 unit PO SA 05/12/16 [History] Multivitamin [Men's Multi-Vitamin] 1 tab PO DAILY 05/12/16 [History] Lovastatin [Mevacor] 40 mg PO HS 05/18/16 [History] Beclomethasone Dip 80 Mcg/Puff [Qvar 80 mcg] 2 puff INHALATION RT-BID 09/15/16 [ History] Ferrous Sulfate [Iron (65 MG Elemental)] 325 mg PO DAILY 09/15/16 [History] Calcium Carbonate [Calcium] 600 mg PO DAILY 10/05/16 [History] Chlorthalidone [Hygroton] 12.5 mg PO DAILY 10/05/16 [History] Tadalafil [Cialis] 20 mg PO Q48H 08/09/17 [History]
[2018-03-18 15:05] VITALS: BP 117/68; RESP 16
== END 2018-03-18 15:20 | disposition home or self-care (01) ==
LOC: ORWHC2ENDO 12:37
PROVIDERS: ATTEND Surgery Plastic and Reconstructive Surgery
DX: Z12.11 Encounter for screening for malignant neoplasm of colon (principal); D12.4 Benign neoplasm of descending colon; K57.30 Diverticulosis of large intestine without perforation or abscess without bleeding; K21.9 Gastro-esophageal reflux disease without esophagitis; J45.909 Unspecified asthma, uncomplicated; E78.5 Hyperlipidemia, unspecified; M81.0 Age-related osteoporosis without current pathological fracture; Z86.010 Personal history of colon polyps; Z80.0 Family history of malignant neoplasm of digestive organs; Z88.8 Allergy status to other drugs, medicaments and biological substances; Z79.51 Long term (current) use of inhaled steroids; Z79.899 Other long term (current) drug therapy; Z87.891 Personal history of nicotine dependence; Z82.49 Family history of ischemic heart disease and other diseases of the circulatory system
CPT/HCPCS: 45385; 88305; J2704

== ENCOUNTER 2018-05-07 10:31 | Day surgery (SDC) | payer BC ==
[2018-05-03 16:11] VITALS: BMI 25.1
[~2018-05-07 10:31] MED LIST changes: +Pre Op ABX Message 1 EACH MISC MISCELLANE ONE
[2018-05-07 10:53] VITALS: RESP 16; TEMP 98.7
[2018-05-07] MEDS ORDERED: LIDOCAINE 1% 20 ML VIAL (10MG/ML) FOR IV START INTRADERMA ONE (10:55)
[2018-05-07] MEDS ORDERED: fentaNYL (PF) 50 MCG/ML 2 ML AMP ONE (12:30)
[2018-05-07] MEDS ORDERED: GLYCOPYRROLATE 0.2 MG/ML 2 ML VIAL ONE (12:30)
[2018-05-07] MEDS ORDERED: MIDAZOLAM 2 MG/2 ML VIAL ONE (12:30)
[2018-05-07] MEDS ORDERED: LIDOCAINE 1% INJ 10MG/ML (20 ML MDV) ONE (12:30)
[2018-05-07] MEDS ORDERED: PROPOFOL 10 MG/ML 20 ML VIAL IV ONE (12:30)
--- NOTE | 2018-05-07 13:06 | P.PCN ---
Date of Procedure: 05/07/18 Preoperative Diagnosis: Chronic cough, recurrent pneumonia, shortness of breath and wheezing, with poor response to therapy Postoperative Diagnosis: As above Procedure(s) Performed: #1 bronchoscopy, #2 bronchoalveolar lavage of the right upper lobe right lower lobe and left lower lobe Anesthesia: MAC Surgeon: Shon Isidro Estimated Blood Loss (ml): 0 Condition: stable Disposition: same day Indications for Procedure: As above Operative Findings: As below Description of Procedure: Patient prepared and draped in a usual fashion for detail anesthesia please refer to the anesthesia note, informed consent obtained from the patient as well as , tip of the scope was passed from the right nares the vocal cords were normal structure and function tip of the scope was has beyond the vocal cords into trachea which was normal, advanced to the right side right upper lobe right middle lobe and right lower lobe along with subsegments were inspected no endobronchial mass lesions identified mild mucosal edema and erythema however is noted, subsequently scope was taken to the left side left upper lobe lingular lobe and left lower lobe along with subsegment were inspected no endobronchial mass lesion was seen mild erythema and edema was noted on the left side and bronchial tree as well be an was performed from the right upper lobe right lower lobe and left lower lobe, patient tolerated procedure well no complication noted, note is made of incidental. In the hard palate with some phlegm and mucous plugs were present which was suctioned and cleaned clean oral surface subsequently obtained with clear base, patient tolerated procedure well no complication noted,
[2018-05-07 13:28] VITALS: BP 119/84; PULSE 52
[2018-05-07] MEDS ORDERED: LACTATED RINGERS 1,000 ML IV SCH (21:45)
== END 2018-05-07 13:47 | disposition home or self-care (01) ==
LOC: ORWHC2ENDO 10:31
PROVIDERS: ATTEND Internal Medicine Sleep Medicine
DX: J45.901 Unspecified asthma with (acute) exacerbation (principal); J44.9 Chronic obstructive pulmonary disease, unspecified; G47.33 Obstructive sleep apnea (adult) (pediatric); J18.9 Pneumonia, unspecified organism; D75.1 Secondary polycythemia; F41.9 Anxiety disorder, unspecified; F32.9 Major depressive disorder, single episode, unspecified; E78.00 Pure hypercholesterolemia, unspecified; Z87.891 Personal history of nicotine dependence; E78.5 Hyperlipidemia, unspecified; R41.3 Other amnesia; Z79.51 Long term (current) use of inhaled steroids; Z79.899 Other long term (current) drug therapy; Z88.3 Allergy status to other anti-infective agents; Z91.040 Latex allergy status
CPT/HCPCS: 88108; 88305; 87252; 87070; 87205; 87116; 87102; 87206; 31624; J2250; J2001; J3010; J2704; 87496; 87498; 87502; 87529; 87634; 87798

== ENCOUNTER → 2018-06-14 | Outpatient (CLI) | payer BC ==
--- NOTE | 2018-06-14 16:32 | CT ---
EXAMINATION TYPE: CT abdomen pelvis wo con DATE OF EXAM: 06/14/2018 COMPARISON: 08/11/2016 HISTORY: Left side inguinal hernia. CT DLP: 463.2 mGycm Examination of the solid and hollow viscera is limited given the lack of contrast. FINDINGS: LUNG BASES: No evidence for nodule. No evidence for infiltrate. LIVER/GB: The gallbladder is unremarkable. No space-occupying hepatic lesion. PANCREAS: No pancreatic mass identified. No inflammatory process seen. SPLEEN: No evidence for splenomegaly. No intrasplenic lesions seen. ADRENALS: No adrenal nodules identified. No evidence for thickening. KIDNEYS: Renal cysts are noted bilaterally measuring 7.7 x 8.2 cm on the left and 5.6 x 5.4 cm on the right. No nephrolithiasis. No hydronephrosis. BOWEL: Appendix has a normal appearance. No evidence of bowel obstruction. No inflammatory process. Lymph nodes: No evidence for adenopathy greater than 1 cm. Abdominal aorta: Atheromatous changes seen. No evidence for aneurysm. Genital organs: No significant abnormality. Other: Left inguinal hernia contains a portion of the urinary bladder. No bowel loops are present. IMPRESSION: 1.Left inguinal hernia contains a portion of the urinary bladder. No bowel loops are present. 2. Simple renal cysts noted bilaterally.
== END ==
LOC: RADCTMAIN 16:11
PROVIDERS: ATTEND Surgery Plastic and Reconstructive Surgery
DX: K40.90 Unilateral inguinal hernia, without obstruction or gangrene, not specified as recurrent (principal); N28.1 Cyst of kidney, acquired; Z91.048 Other nonmedicinal substance allergy status
CPT/HCPCS: 74176

== ENCOUNTER → 2018-07-19 | Outpatient (CLI) | payer BC ==
[2018-07-19 17:25] LABS: LDL Cholesterol,Calculated 94.6 mg/dL (0.0-131.0); VLDL Calculation 17.4 mg/dL (5.00-40.00)
== END | disposition home or self-care (01) ==
LOC: LABWHC1 10:25
PROVIDERS: ATTEND Family Medicine
DX: Z00.00 Encounter for general adult medical examination without abnormal findings (principal); E78.2 Mixed hyperlipidemia; I10 Essential (primary) hypertension
CPT/HCPCS: 36415; 80061; 84153

== ENCOUNTER 2018-07-26 11:38 | Day surgery (SDC) | payer BC ==
[2018-07-18 15:38] VITALS: BMI 25.7
--- NOTE | 2018-07-26 09:59 | P.GSHP ---
History of Present Illness H&P Date: 07/26/18 CHIEF COMPLAINT: Inguinal hernia, left HISTORY OF PRESENT ILLNESS: The patient is a 63-year-old male who presents with a history of swelling and pain along the left groin. He has had previous repair. He's noted increased swelling including pain of the area. Now he presents for repair of his inguinal hernia. PAST MEDICAL HISTORY: Please see list. PAST SURGICAL HISTORY: Please see list. MEDICATIONS: Please see list. ALLERGIES: Please see list. SOCIAL HISTORY: No illicit drug use FAMILY HISTORY: No reports of Crohn disease or ulcerative colitis. REVIEW OF ORGAN SYSTEMS: CONSTITUTIONAL: No reports of fevers or chills. No reports of weight loss despite prior attempts. GI: Denies any blood in stools or constipation. PHYSICAL EXAM: VITAL SIGNS: Stable GENERAL: Well-developed pleasant male in no acute distress. HEENT: No scleral icterus. Extraocular movements grossly intact. Moist buccal mucosa. NECK: Supple without lymphadenopathy. CHEST: Unlabored respirations. Equal bilateral excursions. CARDIOVASCULAR: Regular rate and rhythm. Distal 2+ pulses. ABDOMEN: Soft, nondistended. No peritoneal signs. Palpable defect of the left groin. MUSCULOSKELETAL: No clubbing, cyanosis, or edema. ASSESSMENT: 1. Inguinal hernia, left PLAN: 1. Recommend proceeding with a robotic inguinal repair with mesh with possible bilateral approach. 2. Benefits and risks of surgical intervention was discussed including possibility of open technique. 3. DVT prophylaxis. 4. Antibiotic prophylaxis. Past Medical History Past Medical History: Asthma, Blood Disorder, Hyperlipidemia, Osteoarthritis (OA ) Additional Past Medical History / Comment(s): Osteopenia, polycythemia. History of Any Multi-Drug Resistant Organisms: None Reported Past Surgical History: Hernia Repair, Orthopedic Surgery Additional Past Surgical History / Comment(s): bronchoscopy,right elbow surg. left shoulder surg. pancreas scar tissue removed,lasik. eye surg, 2 inguinal, abdominal,hiatal,umiblical. left knee repair arthroscopy Past Anesthesia/Blood Transfusion Reactions: No Reported Reaction Additional Past Anesthesia/Blood Transfusion Reaction / Comment(s): no hx blood transfusion Smoking Status: Former smoker - Past Family History Mother Family Medical History: Cancer Additional Family Medical History / Comment(s): colon cancer Father Family Medical History: Coronary Artery Disease (CAD) Brother(s) Family Medical History: Coronary Artery Disease (CAD) Medications and Allergies Home Medications Medication Instructions Recorded Confirmed Type Ergocalciferol [Vitamin D2 50,000 unit PO SA 05/12/16 07/18/18 History (MARIA INESOL)] Multivitamin [Men's Multi-Vitamin] 1 tab PO DAILY 05/12/16 07/18/18 History Lovastatin [Mevacor] 40 mg PO HS 05/18/16 07/18/18 History Beclomethasone Dip 80 Mcg/Puff 2 puff INHALATION RT-BID 09/15/16 07/18/18 History [Qvar 80 mcg] Ferrous Sulfate [Iron (65 MG 325 mg PO DAILY 09/15/16 07/18/18 History Elemental)] Calcium Carbonate [Calcium] 600 mg PO DAILY 10/05/16 07/18/18 History Chlorthalidone [Hygroton] 12.5 mg PO DAILY 10/05/16 07/18/18 History Tadalafil [Cialis] 5 mg PO DAILY 07/18/18 07/18/18 History Allergies Allergy/AdvReac Type Severity Reaction Status Date / Time chlorhexidine Allergy Rash/Hives Verified 07/18/18 15:11 latex AdvReac red skin Verified 07/18/18 15:11
[~2018-07-26 11:38] MED LIST changes: +DEXAMETHASONE SOD PHOSPHATE 10 MG/ML 1 ML VIAL IV ONE; +HEPARIN SODIUM,PORCINE 5,000 UNIT/ML 1 ML VIAL SQ ONE; +LIDOCAINE 1% 20 ML VIAL (10MG/ML) FOR IV START INTRADERMA PRN; +MIDAZOLAM 2 MG/2 ML VIAL IV PRN; +ONDANSETRON 4 MG/2 ML VIAL IVP ONE; -Pre Op ABX Message 1 EACH MISC MISCELLANE ONE; +SCOPOLAMINE 1.5MG/72HR PATCH TRANSDERM ONE; +ceFAZolin IN SWFI 2 GM/20 ML SYRINGE IVP ONE
[2018-07-26 11:58] VITALS: RESP 16
[2018-07-26] MEDS: HYDROmorphone 0.5 MG/0.5 ML SYRINGE IVP PRN ×3 (12:31→16:00)
[2018-07-26] MEDS ORDERED: MIDAZOLAM 2 MG/2 ML VIAL IV ONE (12:43)
--- NOTE | 2018-07-26 13:04 | P.ONQ ---
Anesthesiology Proc Note - PNB - Peripheral Nerve Block Performed Bilateral Transversus Abdominis Time Out Performed: Yes Indication: Acute Post-Operative Pain, Analgesia, Requested by physician Sedation Type: Sedate with meaningful contact maintained Preparation: Sterile Prep Position: Supine Catheter: None Needle Types: On-Q Needle Size: 100mm (4") Needle Gauge: 21 Technique: Ultrasound Injectate: Other (see comment) (0.375% ropivacaine 20cc on each side) Blood Aspirated: No Pain Paresthesia on Injection Noted: No Resistance on Injection: Normal Events: Uneventful and Well Tolerated
[2018-07-26] MEDS ORDERED: TAMSULOSIN 0.4 MG CAP.ER.24H PO STA ×2 (13:07→15:41)
[2018-07-26] MEDS ORDERED: KETOROLAC 30 MG/ML 1 ML VIAL ONE (13:34)
[2018-07-26] MEDS ORDERED: MIDAZOLAM 2 MG/2 ML VIAL ONE (13:34)
[2018-07-26] MEDS ORDERED: PROPOFOL 10 MG/ML 20 ML VIAL IV ONE (13:34)
[2018-07-26] MEDS ORDERED: ROPIVACAINE 5 MG/ML 30 ML VIAL ONE (13:34)
[2018-07-26] MEDS ORDERED: ROCURONIUM BROMIDE 10 MG/ML 10 ML VIAL IV ONE (13:34)
[2018-07-26] MEDS ORDERED: LIDOCAINE 1% INJ 10MG/ML (20 ML MDV) ONE (13:34)
[2018-07-26] MEDS ORDERED: fentaNYL (PF) 50 MCG/ML 2 ML AMP ONE (13:34)
[2018-07-26] MEDS ORDERED: BUPIVACAIN-EPI 0.25%-1:200,000 30 ML VIAL SQ ONE ×2 (13:39→14:02)
[2018-07-26 15:46] VITALS: TEMP 97.2
--- NOTE | 2018-07-26 15:57 | P.OP ---
Date of Procedure: 07/26/18 Description of Procedure: SURGEON: GUADALUPE MOORE MD PREOPERATIVE DIAGNOSES: 1. Previous history of bilateral inguinal hernia repair 2. Abnormal computed tomography scan of recurrent left inguinal hernia 3. History of multiple abdominal surgeries 4. History of peritoneal adhesions 5. Hyperlipidemia 6. Hypertensive heart disease 7. Polycythemia 8. Osteopenia 9. Iron deficiency anemia 10. Esophageal dysmotility 11. Periumbilical pain POSTOPERATIVE DIAGNOSES: 1. Previous history of bilateral inguinal hernia repair 2. Abnormal computed tomography scan of recurrent left inguinal hernia 3. History of multiple abdominal surgeries 4. History of peritoneal adhesions 5. Hyperlipidemia 6. Hypertensive heart disease 7. Polycythemia 8. Osteopenia 9. Iron deficiency anemia 10. Esophageal dysmotility 11. Periumbilical pain 12. Severe peritoneal adhesions greater omentum to the abdominal wall OPERATION: 1. Robotic-assisted da Juan Xi laparoscopic extensive lysis of adhesions over 1 hr COMPLICATIONS: None. Anesthesia: GETA, local Estimated Blood Loss (ml): 10 Pathology: none sent Condition: stable Disposition: same day OPERATIVE FINDINGS: 1. Severe peritoneal adhesions involving periumbilical area including bilateral groin 2. No recurrent umbilical or bilateral inguinal hernias. INDICATIONS: The patient is a 63-year-old male who presents with abnormal CT scan alluding to recurrent left inguinal hernia. He also complained of possible recurrent umbilical hernia due to pain. Surgical intervention of inguinal hernia repair with mesh and with lysis of adhesions was described given his history of severe adhesive band disease. Informed consent was obtained. Robotic assisted laparoscopic approach was described. Benefits and risks of the procedure including but not limited to bleeding, infection, injury to the small bowel was described. Informed consent was obtained. DESCRIPTION OF PROCEDURE: Patient was brought to the operating room, placed in supine position. After general induction, the abdomen had been prepped and draped in standard sterile fashion. The robotic da Juan XI system was primed. After a timeout protocol was performed, the patient had been prepped and draped in standard sterile fashion. The robot was docked along the right lateral abdomen. The patient was repositioned in reverse Trendelenburg position of 14- degrees. A 5 mm 0 degrees laparoscopic trocar entry was performed along the left upper quadrant. The abdomen was insufflated to 15 mmHg pressure which he tolerated well. Diagnostic laparoscopy demonstrated severe intra-abdominal adhesions involving the midline at the umbilicus and bilateral inguinal are. The small bowel was unremarkable without evidence of dilation or suggestion of obstruction. No injury to the bowel, viscera or mesentery was identified. Next, three 8 mm robotic ports were placed along the upper abdomen. The camera 8 -mm port was initially docked along the epigastrium. Please note that the ports were placed at least 8 cm away from the target anatomy. Instruments were interchanged using only 3 ports for a grasper, vessel sealer, and scissors with cautery. Instruments were interchanged by the surgical assistant including Bovie cautery scissors. I had sat at the console. The camera was positioned along the epigastrium. Extensive lysis of adhesions over 1 hour was performed. Carefully the adhesions were taken down without injury to the small bowel using vessel sealer and cautery on scissors. Severe adhesions along the umbilicus was also confirmed as the patient's location of pain without a recurrent hernia. No bladder diverticulum or bladder hernia was found after all adhesions were lysed. No involvement of small bowel was found. Hemostasis was excellent and abdomen was dry upon completion. Completion lysis of adhesions confirmed no recurrent inguinal or umbilical hernias. The robot was undocked. All pneumoperitoneum and instruments were evacuated from the abdominal cavity. The incisions were reapproximated using 4-0 Monocryl in an interrupted subcuticular fashion. Please note along the trocar sites, local anesthetic was placed as a field block prior to insertion of all instruments. Liquid glue was applied to the skin. At the end of the procedure needle, sponge, and instrument count had been verified correct by the surgical assistant. The patient was transferred to postanesthesia care unit in stable condition. Intraoperative images including findings were described to the patients family. Console time 46 minutes Plan - Discharge Summary New Discharge Prescriptions: New HYDROcodone/APAP 5-325MG [[place] 5-325] 1 tab PO Q4HR PRN 3 Days #18 tab PRN Reason: Pain Ibuprofen [Motrin] 600 mg PO Q8HR PRN #30 tab PRN Reason: Pain Tamsulosin [Flomax] 0.4 mg PO DAILY #7 cap No Action Ergocalciferol [Vitamin D2 (DRISDOL)] 50,000 unit PO SA Multivitamin [Men's Multi-Vitamin] 1 tab PO DAILY Lovastatin [Mevacor] 40 mg PO HS Ferrous Sulfate [Iron (65 MG Elemental)] 325 mg PO DAILY Beclomethasone Dip 80 Mcg/Puff [Qvar 80 mcg] 2 puff INHALATION RT-BID Chlorthalidone [Hygroton] 12.5 mg PO DAILY Calcium Carbonate [Calcium] 600 mg PO DAILY Tadalafil [Cialis] 5 mg PO DAILY Discharge Medication List Ergocalciferol [Vitamin D2 (DRISDOL)] 50,000 unit PO SA 05/12/16 [History] Multivitamin [Men's Multi-Vitamin] 1 tab PO DAILY 05/12/16 [History] Lovastatin [Mevacor] 40 mg PO HS 05/18/16 [History] Beclomethasone Dip 80 Mcg/Puff [Qvar 80 mcg] 2 puff INHALATION RT-BID 09/15/16 [ History] Ferrous Sulfate [Iron (65 MG Elemental)] 325 mg PO DAILY 09/15/16 [History] Calcium Carbonate [Calcium] 600 mg PO DAILY 10/05/16 [History] Chlorthalidone [Hygroton] 12.5 mg PO DAILY 10/05/16 [History] Tadalafil [Cialis] 5 mg PO DAILY 07/18/18 [History] HYDROcodone/APAP 5-325MG [[place] 5-325] 1 tab PO Q4HR PRN 3 Days #18 tab [Rx] Ibuprofen [Motrin] 600 mg PO Q8HR PRN #30 tab 07/26/18 [Rx] Tamsulosin [Flomax] 0.4 mg PO DAILY #7 cap 07/26/18 [Rx] Follow up Appointment(s)/Referral(s): Guadalupe Moore MD [STAFF PHYSICIAN] - 07/31/18 12:30 pm Patient Instructions/Handouts: Laparoscopic Herniorrhaphy (IP), Inguinal Hernia Repair (DC) Activity/Diet/Wound Care/Special Instructions: NO Lifting over 4 pounds 2 weeks. May shower. No bath tub soaks. Discharge Disposition: HOME SELF-CARE
[2018-07-26] MEDS ORDERED: LACTATED RINGERS 1,000 ML IV ONE ×2 (16:20)
[2018-07-26] MEDS ORDERED: HYDROcodone/APAP 5-325MG 1 EACH TAB PO ONE (17:16)
[2018-07-26 17:54] VITALS: BP 129/76; PULSE 67
== END 2018-07-26 18:15 | disposition home or self-care (01) ==
LOC: OR 11:38
PROVIDERS: ATTEND Surgery Plastic and Reconstructive Surgery
DX: K66.0 Peritoneal adhesions (postprocedural) (postinfection) (principal); R93.5 Abnormal findings on diagnostic imaging of other abdominal regions, including retroperitoneum; Z87.898 Personal history of other specified conditions; E78.5 Hyperlipidemia, unspecified; I11.9 Hypertensive heart disease without heart failure; D75.1 Secondary polycythemia; M85.80 Other specified disorders of bone density and structure, unspecified site; D50.9 Iron deficiency anemia, unspecified; K22.4 Dyskinesia of esophagus; J45.909 Unspecified asthma, uncomplicated; M19.90 Unspecified osteoarthritis, unspecified site; Z79.51 Long term (current) use of inhaled steroids; Z79.899 Other long term (current) drug therapy; Z88.8 Allergy status to other drugs, medicaments and biological substances; Z91.040 Latex allergy status; Z87.891 Personal history of nicotine dependence
CPT/HCPCS: 49329; 64488; J2250; J1644; J1100; J2405; J2001; J3010; J1885; J2795; J2704; J1170; J0690

== ENCOUNTER 2019-06-15 18:54 | Emergency (ER) | payer BC ==
[2019-06-15] MEDS ORDERED: LIDOCAINE 5% PATCH TOPICAL STA (19:29)
[2019-06-15] MEDS ORDERED: KETOROLAC 30 MG/ML 1 ML VIAL IM STA (19:29)
[2019-06-15] MEDS ORDERED: HYDROcodone/APAP 5-325MG 1 EACH TAB PO STA (19:29)
[2019-06-15] MEDS ORDERED: DIPH,PERTUS(ACELL)TETVAC-LF 0.5 ML VIAL IM ONE (19:29)
--- NOTE | 2019-06-15 19:45 | XR ---
EXAMINATION TYPE: XR ribs RT w pa chest xray DATE OF EXAM: 06/15/2019 COMPARISON: NONE HISTORY: Rib pain TECHNIQUE: 5 views FINDINGS: Heart and mediastinum are normal. Lungs are clear. Diaphragm is normal. Bony thorax appears normal. The right ribs appear intact. There is no pleural effusion or pneumothorax. IMPRESSION: No rib fracture seen. No active cardiopulmonary disease.
[2019-06-15 19:58] LABS: Appearance,Urine Clear (Clear); Bilirubin,Urine Negative (Negative); Blood,Urine Negative (Negative); Color,Urine Yellow; Glucose,Urine (UA) Negative (Negative); Ketones,Urine Negative (Negative); Leukocyte Esterase,Urine Negative (Negative); Nitrite,Urine Negative (Negative); PH, Urine 5.5 (5.0-8.0); Protein,Urine Negative (Negative); Specific Gravity,Urine 1.021 (1.001-1.035); Urobilinogen,Urine <2.0 mg/dL (<2.0)
--- NOTE | 2019-06-15 20:02 | ED ---
Fall HPI - General Chief Complaint: Fall Stated Complaint: fall, rib pain Time Seen by Provider: 06/15/19 19:13 Source: patient Mode of arrival: ambulatory - History of Present Illness Initial Comments: 63-year-old male patient presents to the emergency department today for evaluation of right rib pain after experiencing a slip and fall accident yesterday. Patient states she was stepping out of his hot tub when he slipped on the step and fell hitting his right ribs right hip and right knee on the tub. He denies hitting his head or losing consciousness. Denies any neck or back pain. Patient states he does have some bruising over the right hip. Denies any pain with ambulation or difficulty with range of motion. He is reporting right rib pain especially with deep inspiration. Denies any hemoptysis facility has had a slight cough. Denies taking any medication for his symptoms. He is unsure when his last tetanus vaccine was given. Patient denies any headache, lorna rtness of breath, dizziness, weakness, abdominal pain, nausea, vomiting, or difficulties with bowel movements or urination. - Related Data Home Medications Medication Instructions Recorded Confirmed Ergocalciferol [Vitamin D2 50,000 unit PO SA 05/12/16 07/18/18 (DRISDOL)] Multivitamin [Men's Multi-Vitamin] 1 tab PO DAILY 05/12/16 07/18/18 Lovastatin [Mevacor] 40 mg PO HS 05/18/16 07/18/18 Beclomethasone Dip 80 Mcg/Puff 2 puff INHALATION RT-BID 09/15/16 07/18/18 [Qvar 80 mcg] Ferrous Sulfate [Iron (65 MG 325 mg PO DAILY 09/15/16 07/18/18 Elemental)] Calcium Carbonate [Calcium] 600 mg PO DAILY 10/05/16 07/18/18 Chlorthalidone [Hygroton] 12.5 mg PO DAILY 10/05/16 07/18/18 Tadalafil [Cialis] 5 mg PO DAILY 07/18/18 07/18/18 Previous Rx's Medication Instructions Recorded HYDROcodone/APAP 5-325MG [[place] 1 tab PO Q4HR PRN 3 Days #18 tab 07/26/18 5-325] Ibuprofen [Motrin] 600 mg PO Q8HR PRN #30 tab 07/26/18 Tamsulosin [Flomax] 0.4 mg PO DAILY #7 cap 07/26/18 Ibuprofen [Motrin] 600 mg PO Q8HR PRN #30 tab 06/15/19 Lidocaine 5% Patch [Lidoderm] 1 patch TOPICAL DAILY #30 patch 06/15/19 Allergies Allergy/AdvReac Type Severity Reaction Status Date / Time chlorhexidine Allergy Rash/Hives Verified 06/15/19 19:00 latex AdvReac red skin Verified 06/15/19 19:00 Review of Systems ROS Statement: Those systems with pertinent positive or pertinent negative responses have been documented in the HPI. ROS Other: All systems not noted in ROS Statement are negative. Past Medical History Past Medical History: Asthma, Blood Disorder, Hyperlipidemia, Osteoarthritis (OA) Additional Past Medical History / Comment(s): Osteopenia, polycythemia. History of Any Multi-Drug Resistant Organisms: None Reported Past Surgical History: Hernia Repair, Orthopedic Surgery Additional Past Surgical History / Comment(s): bronchoscopy,right elbow surg. left shoulder surg. pancreas scar tissue removed,lasik. eye surg, 2 inguinal,abdominal,hiatal,umiblical. left knee repair arthroscopy Past Anesthesia/Blood Transfusion Reactions: No Reported Reaction Additional Past Anesthesia/Blood Transfusion Reaction / Comment(s): no hx blood transfusion Past Psychological History: No Psychological Hx Reported Smoking Status: Former smoker Past Alcohol Use History: Occasional Past Drug Use History: None Reported - Past Family History Mother Family Medical History: Cancer Additional Family Medical History / Comment(s): colon cancer Father Family Medical History: Coronary Artery Disease (CAD) Brother(s) Family Medical History: Coronary Artery Disease (CAD) General Exam Limitations: no limitations General appearance: alert, in no apparent distress, other (This is a well- developed, well-nourished adult male patient in no acute distress. Vital signs upon presentation are temperature 98.6F, pulse 68, respirations 16, blood pressure 146/80, pulse ox 96% on room air.) Eye exam: Present: normal appearance, PERRL, EOMI. Absent: scleral icterus, conjunctival injection, periorbital swelling ENT exam: Present: normal exam, normal oropharynx, mucous membranes moist Neck exam: Present: normal inspection, full ROM, other (Nontender, no step-off, no deformity to firm midline palpation of the posterior cervical spine. Full range of motion without pain or limitation.). Absent: tenderness, meningismus, lymphadenopathy Respiratory exam: Present: normal lung sounds bilaterally, chest wall tenderness (Right lateral ribs), other (No ecchymosis noted to the chest wall). Absent: respiratory distress, wheezes, rales, rhonchi, stridor Cardiovascular Exam: Present: regular rate, normal rhythm, normal heart sounds. Absent: systolic murmur, diastolic murmur, rubs, gallop, clicks GI/Abdominal exam: Present: soft, normal bowel sounds. Absent: distended, tenderness, guarding, rebound, rigid Extremities exam: Present: full ROM, normal capillary refill, other (There is ecchymosis and small abrasion noted to the right lateral hip.). Absent: normal inspection, tenderness, pedal edema, joint swelling, calf tenderness Back exam: Present: normal inspection, other (Nontender, no step-off, no deformity to firm midline palpation of the thoracic and lumbar vertebrae. Full range of motion without pain or limitation.). Absent: vertebral tenderness Neurological exam: Present: alert, oriented X3, CN II-XII intact Psychiatric exam: Present: normal affect, normal mood Skin exam: Present: warm, dry, intact, normal color. Absent: rash Course Vital Signs 06/15/19 18:57 Temperature 98.6 F Pulse Rate 68 Respiratory 16 Rate Blood Pressure 146/80 O2 Sat by Pulse 96 Oximetry Medical Decision Making - Medical Decision Making 63-year-old male patient presents to the emergency department today for evaluation of right rib pain and contusion to the right hip after soap and fall accident yesterday. Physical examination did reveal tenderness over the right lateral ribs. Lungs are clear to auscultation with good air movement. There is also evidence or ecchymosis and abrasion over the right hip. Patient is ambulatory had no bony tenderness over the hip or knee. X-rays of the right rib and chest were obtained and showed no acute abnormalities. Urinalysis was negative for any evidence of blood. We will treat for rib contusion with incentive spirometry and pain management. He is instructed to follow-up with his primary care physician for recheck in 1-2 days. Return parameters were discussed in detail. He verbalizes understanding and agrees with this plan. - Lab Data Lab Results 06/15/19 Range/Units 19:50 Urine Color Yellow Urine Appearance Clear (Clear) Urine pH 5.5 (5.0-8.0) Ur Specific [place] 1.021 (1.001-1.035) Urine Protein Negative (Negative) Urine Glucose (UA) Negative (Negative) Urine Ketones Negative (Negative) Urine Blood Negative (Negative) Urine Nitrite Negative (Negative) Urine Bilirubin Negative (Negative) Urine Urobilinogen <2.0 (<2.0) mg/dL Ur Leukocyte Esterase Negative (Negative) - Radiology Data Radiology results: report reviewed, image reviewed 5 views of the right ribs and chest are obtained. Report was reviewed in its entirety. Impression by Dr. Terrell shows no rib fracture seen. No active cardiopulmonary disease. Disposition Clinical Impression: Rib pain on right side, Contusion of right hip Disposition: HOME SELF-CARE Condition: Good Instructions (If sedation given, give patient instructions): Rib Fracture (ED), Contusion in Adults (ED) Additional Instructions: Take medication as directed. Perform coughing and deep breathing exercises 10 times hour while awake. Use incentive spirometer as directed. Follow-up through primary care physician for recheck in 1-2 days. Return to the emergency department immediately for any new, worsening, or concerning symptoms. Prescriptions: Lidocaine 5% Patch [Lidoderm] 1 patch TOPICAL DAILY #30 patch Ibuprofen [Motrin] 600 mg PO Q8HR PRN #30 tab PRN Reason: Pain Is patient prescribed a controlled substance at d/c from ED?: No Referrals: Darryl Danielson MD [Primary Care Provider] - 1-2 days Time of Disposition: 20:18
[2019-06-15] MEDS ORDERED: ACET/COD 300 MG/30 MG STARTER PACK 6 TAB BTL PO STA (20:16)
[2019-06-15] MEDS ORDERED: IBUPROFEN 600 MG STARTER PACK 4 TAB BTL PO STA (20:16)
[2019-06-15 20:26] VITALS: BP 134/78; PULSE 62; RESP 18; TEMP 97.3
== END 2019-06-15 20:26 | disposition home or self-care (01) ==
LOC: EC 18:54
DX: S70.01XA Contusion of right hip, initial encounter (principal); S20.211A Contusion of right front wall of thorax, initial encounter; J45.909 Unspecified asthma, uncomplicated; E78.5 Hyperlipidemia, unspecified; D75.1 Secondary polycythemia; Z87.891 Personal history of nicotine dependence; Z88.1 Allergy status to other antibiotic agents; Z91.040 Latex allergy status; Z79.51 Long term (current) use of inhaled steroids; Z79.899 Other long term (current) drug therapy; Z23 Encounter for immunization; W01.0XXA Fall on same level from slipping, tripping and stumbling without subsequent striking against object, initial encounter; Y93.89 Activity, other specified; Y92.89 Other specified places as the place of occurrence of the external cause
CPT/HCPCS: 81003; 71101; 90715; 99284; 96372; 90471; J1885

== ENCOUNTER 2020-01-22 08:54 | Day surgery (SDC) | payer BC ==
[2020-01-20 11:37] VITALS: BMI 26.5
--- NOTE | 2020-01-22 08:07 | P.GSHP ---
History of Present Illness H&P Date: 01/22/20 CHIEF COMPLAINT: Ventral hernia HISTORY OF PRESENT ILLNESS: The patient is a 64-year-old male who presents with a history of swelling and pain along the abdomen from a hernia. Now he presents for surgical intervention. PAST MEDICAL HISTORY: Please see list. PAST SURGICAL HISTORY: Please see list. MEDICATIONS: Please see list. ALLERGIES: Please see list. SOCIAL HISTORY: No illicit drug use FAMILY HISTORY: No reports of Crohn disease or ulcerative colitis. REVIEW OF ORGAN SYSTEMS: CONSTITUTIONAL: No reports of fevers or chills. No reports of weight loss despite prior attempts. GI: Denies any blood in stools or constipation. PHYSICAL EXAM: VITAL SIGNS: Stable GENERAL: Well-developed pleasant male in no acute distress. HEENT: No scleral icterus. Extraocular movements grossly intact. Moist buccal mucosa. NECK: Supple without lymphadenopathy. CHEST: Unlabored respirations. Equal bilateral excursions. CARDIOVASCULAR: Regular rate and rhythm. Distal 2+ pulses. ABDOMEN: Soft, nondistended. Palpable defect of the abdomen. No peritoneal signs. MUSCULOSKELETAL: No clubbing, cyanosis, or edema. ASSESSMENT: 1. Ventral hernia PLAN: 1. Recommend proceeding with robotic ventral hernia repair with mesh. 2. Benefits and risks of surgical intervention was discussed including possibility of open technique. 3. DVT prophylaxis. 4. Antibiotic prophylaxis. Past Medical History Past Medical History: Asthma, Blood Disorder, Hyperlipidemia, Osteoarthritis (OA) Additional Past Medical History / Comment(s): Osteopenia, polycythemia, hx migraines, History of Any Multi-Drug Resistant Organisms: None Reported Past Surgical History: Hernia Repair, Orthopedic Surgery, Tonsillectomy Additional Past Surgical History / Comment(s): bronchoscopy,right elbow surg. left shoulder arthroscopy, pancreas scar tissue removed, left thumb nodule removed, lasik eye surg, 2 inguinal,abdominal,hiatal,umiblical hernias, left knee arthroscopy x 3 Past Anesthesia/Blood Transfusion Reactions: No Reported Reaction Additional Past Anesthesia/Blood Transfusion Reaction / Comment(s): no hx blood transfusion Past Psychological History: No Psychological Hx Reported Smoking Status: Former smoker Past Alcohol Use History: Occasional Additional Past Alcohol Use History / Comment(s): quit smoking 2008,smoked approx 20yrs <1ppd Past Drug Use History: Marijuana Additional Drug Use History / Comment(s): occ. use - Past Family History Mother Family Medical History: Cancer Additional Family Medical History / Comment(s): colon cancer Father Family Medical History: Coronary Artery Disease (CAD) Brother(s) Family Medical History: Coronary Artery Disease (CAD) Medications and Allergies Home Medications Medication Instructions Recorded Confirmed Type Ergocalciferol [Vitamin D2 50,000 unit PO SA 05/12/16 01/20/20 History (DRISDOL)] Multivitamin [Men's Multi-Vitamin] 1 tab PO DAILY 05/12/16 01/20/20 History Lovastatin [Mevacor] 40 mg PO HS 05/18/16 01/20/20 History Beclomethasone Dip 80 Mcg/Puff 2 puff INHALATION BID 09/15/16 01/20/20 History [Qvar 80 mcg] Ferrous Sulfate [Iron (65 MG 325 mg PO DAILY 09/15/16 01/20/20 History Elemental)] Calcium Carbonate [Calcium] 600 mg PO DAILY 10/05/16 01/20/20 History Chlorthalidone [Hygroton] 12.5 mg PO DAILY 10/05/16 01/20/20 History Tadalafil [Cialis] 5 mg PO DAILY 07/18/18 01/20/20 History Ibuprofen [Motrin] 600 mg PO Q8HR PRN #30 tab 06/15/19 01/20/20 Rx Allergies Allergy/AdvReac Type Severity Reaction Status Date / Time chlorhexidine Allergy Rash/Hives Verified 01/20/20 11:26 latex AdvReac red skin Verified 01/20/20 11:26
[~2020-01-22 08:54] MED LIST changes: +ACETAMINOPHEN TAB 500 MG TAB PO STA; +DEXAMETHASONE SOD PHOSPHATE 10 MG/ML 1 ML VIAL IV PRN; +GABAPENTIN 300 MG CAP PO STA; +HYDROmorphone 0.5 MG/0.5 ML SYRINGE IVP PRN; -LIDOCAINE 1% 20 ML VIAL (10MG/ML) FOR IV START INTRADERMA PRN; -MIDAZOLAM 2 MG/2 ML VIAL IV PRN; -SCOPOLAMINE 1.5MG/72HR PATCH TRANSDERM ONE; +TAMSULOSIN 0.4 MG CAP.ER.24H PO STA; -ceFAZolin IN SWFI 2 GM/20 ML SYRINGE IVP ONE; +diphenhydrAMINE 50 MG/ML 1 ML VIAL IVP STA
[2020-01-22] MEDS ORDERED: ACETAMINOPHEN TAB 500 MG TAB ONE (09:25)
[2020-01-22] MEDS ORDERED: diphenhydrAMINE 50 MG/ML 1 ML VIAL ONE (09:25)
[2020-01-22] MEDS ORDERED: HEPARIN SODIUM,PORCINE 5,000 UNIT/ML 1 ML VIAL ONE (09:26)
[2020-01-22] MEDS ORDERED: ONDANSETRON 4 MG/2 ML VIAL ONE (09:26)
[2020-01-22] MEDS ORDERED: DEXAMETHASONE SOD PHOSPHATE 10 MG/ML 1 ML VIAL IV ONE (09:52)
[2020-01-22 09:55] LABS: Glucose,Whole Blood 73 mg/dL (75-99)
[2020-01-22 10:07] VITALS: TEMP 97.4
[2020-01-22 10:07] LABS: Basophils % (A) 1 %; Eosinophils # (A) 0.3 k/uL (0-0.7); Eosinophils % (A) 5 %; HCT 40.9 % (39.0-53.0); HGB 13.2 gm/dL (13.0-17.5); Lymphocytes # (A) 1.3 k/uL (1.0-4.8); Lymphocytes % (A) 24 %; MCH 28.4 pg (25.0-35.0); MCHC 32.3 g/dL (31.0-37.0); MCV 87.9 fL (80.0-100.0); Mean Platelet Volume 7.1; Monocytes # (A) 0.4 k/uL (0-1.0); Monocytes % (A) 8 %; Neutrophils # (A) 3.2 k/uL (1.3-7.7); Neutrophils % (A) 60 %; Platelet Count 220 k/uL (150-450); RBC 4.66 m/uL (4.30-5.90); RDW 13.4 % (11.5-15.5); WBC 5.4 k/uL (3.8-10.6)
[2020-01-22 10:14] LABS: ALT 17 U/L (4-49); AST 27 U/L (17-59); African American GFR (CKD) >90 (>60 ml/min/1.73 sqM); Albumin 3.8 g/dL (3.5-5.0); Alkaline Phosphatase 59 U/L (38-126); Anion Gap 9 mmol/L; Blood Urea Nitrogen 20 mg/dL (9-20); Carbon Dioxide 24 mmol/L (22-30); Chloride 104 mmol/L (98-107); Glucose 92 mg/dL (74-99); Non-African American GFR(CKD) >90 (>60 ml/min/1.73 sqM); Potassium 3.9 mmol/L (3.5-5.1); Sodium 137 mmol/L (137-145); Total Bilirubin 0.3 mg/dL (0.2-1.3); Total Protein 6.4 g/dL (6.3-8.2)
[2020-01-22] MEDS ORDERED: MIDAZOLAM 2 MG/2 ML VIAL IVP ONE (10:14)
[2020-01-22] MEDS ORDERED: LIDOCAINE 1% INJ 10MG/ML (20 ML MDV) ONE (10:34)
[2020-01-22] MEDS ORDERED: ROPIVACAINE 5 MG/ML 30 ML VIAL ONE (10:34)
[2020-01-22] MEDS ORDERED: NEOSTIGMINE 1 MG/ML 10 ML VIAL ONE (10:34)
[2020-01-22] MEDS ORDERED: SUCCINYLCHOLINE CHLORIDE 100 MG/5 ML SYR IV ONE (10:34)
[2020-01-22] MEDS ORDERED: fentaNYL (PF) 50 MCG/ML 2 ML AMP ONE (10:34)
[2020-01-22] MEDS ORDERED: GLYCOPYRROLATE 0.2 MG/ML 2 ML VIAL ONE (10:34)
[2020-01-22] MEDS ORDERED: ROCURONIUM BROMIDE 10 MG/ML 5 ML VIAL IV ONE (10:34)
[2020-01-22] MEDS ORDERED: SODIUM CHLORIDE 0.9% (PF) 10 ML VIAL ONE (10:34)
[2020-01-22] MEDS ORDERED: DEXAMETHASONE SOD PHOSPHATE 4 MG/ML 1 ML VIAL ONE (10:34)
[2020-01-22] MEDS ORDERED: PROPOFOL 10 MG/ML 20 ML VIAL IV ONE (10:34)
[2020-01-22] MEDS ORDERED: MIDAZOLAM 2 MG/2 ML VIAL ONE (10:34)
[2020-01-22] MEDS ORDERED: BUPIVACAIN-EPI 0.25%-1:200,000 30 ML VIAL SQ ONE (11:08)
[2020-01-22] MEDS ORDERED: KETOROLAC 30 MG/ML 1 ML VIAL IVP PRN (12:08)
[2020-01-22] MEDS ORDERED: SIMETHICONE 80 MG CHEWABLE PO SCH (12:15)
--- NOTE | 2020-01-22 12:15 | P.ANPRN ---
Procedure Note - Anesthesia - Nerve Block Performed Bilateral Rectus Abdominis Single Time Out Performed: Yes Date of Procedure: 01/22/20 Procedure Start Time: 10:13 Procedure Stop Time: :29 Location of Patient: PreOp Indication: Acute Post-Operative Pain, Requested by Surgeon Sedation Type: Sedate with meaningful contact maintained Preparation: Sterile Prep, Sterile Dressing Position: Supine Catheter: None Needle Types: Pajunk Needle Gauge: 20 Ultrasound used to visualize needle placement: Yes Ultrasound used to observe medication spread: Yes Injectate: Other (see comment) (Ropivacaine 0.25% 30 ml per side with decadron 2 mg per side) Blood Aspirated: No Pain Paresthesia on Injection Noted: No Resistance on Injection: Normal Image Stored and Saved: Yes Events: Uneventful and Well Tolerated
--- NOTE | 2020-01-22 12:18 | P.OP ---
Date of Procedure: 01/22/20 Description of Procedure: SURGEON: GUADALUPE MOORE MD PREOPERATIVE DIAGNOSES: 1. Periumbilical abdominal pain 2. Left lower quadrant swelling 3. History of bilateral inguinal hernias 4. History of peritoneal adhesions 5. Polycythemia vera 6. Pre-existing history of postoperative obstructive uropathy 7. Hyperlipidemia 8. Asthma 9. Iron deficiency anemia POSTOPERATIVE DIAGNOSES: 1. Periumbilical abdominal pain 2. Left lower quadrant swelling 3. History of bilateral inguinal hernias 4. History of peritoneal adhesions 5. Polycythemia vera 6. Pre-existing history of postoperative obstructive uropathy 7. Hyperlipidemia 8. Asthma 9. Iron deficiency anemia 10. 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 Robotic assisted da Juan Xi laparoscopic lysis of adhesions Anesthesia: GETA, local Estimated Blood Loss (ml): 5 Pathology: none sent Condition: stable Disposition: same day COMPLICATIONS: None. Operative Findings: 1. Exploration of bilateral groins demonstrated bilateral recurrent peritoneal adhesions. 2. Lysis of adhesions performed with findings of no recurrent bilateral internal hernia 3. Pain along ventral abdomen consistent with peritoneal adhesions also sharply lysed INDICATIONS: The patient is a 64-year-old gentleman who presents with history of bilateral inguinal hernia repairs and abdominal ventral hernia repairs. He reports pain and discomfort along the abdominal wall including the left pelvis. Surgical intervention was described. Laparoscopic versus open and robotic approaches were discussed. Benefits and risks including but not limited to bleeding, infection, need for further surgery were reviewed. Placement of mesh was also described. Informed consent was obtained. DESCRIPTION: In the preoperative area, the patient was marked with indelible marker along the left groin including on the patient's abdomen of location of pain. The patient was brought to the operating room and laid in supine position. After general induction, the abdomen had been prepped and draped in standard sterile fashion. Ioban draping was also placed. Prior to incision, a timeout protocol was confirmed with surgical team regarding patient's name including procedures to be performed and location along the left groin. Initial positioning for the robotic assisted ports were selected whereby 20 cm superior to the target anatomy, 0 degree 5 mm laparoscopic trocar entry was performed at the left upper quadrant. The abdomen was insufflated to 15 mmHg which he had tolerated well. Diagnostic laparoscopy demonstrated omental adhesions along the patient's pain at the ventral abdomen including bilateral pelvis. Next, along the epigastrium, 8 mm robot trocar was placed. An 8-mm robotic trocar was placed under direct visualization at the right upper quadrant. The 5 mm port was exchanged for a 8 mm trocar. All trocars were positioned between 8 to 10-cm apart from each other. The patient was placed in steep reverse Trendelenburg position, 10. The [employer] XI robot was primed, draped, prepared for docking along the upper abdomen of the patient. I went to the [employer] Xi console. The coding assistant was at bedside for exchange of the robot arms and equipment. Adhesions along the abdominal wall were lysed using scissor cautery. Along the bilateral pelvis the omentum was also similarly lysed using Bovie with scissors. Careful inspection along the left groin was performed without any recurrent hernia identified. The coding assistant palpated the marking and applied pressure along the left groin specific at the patient's location of pain and swelling. Again no additional hernia or recurrent hernias were identified. After complete inspection, all adhesions were lysed from the abdominal wall. The robot was undocked from the patient's bedside. I then rescrubbed into the case. Insufflation was released from the abdominal cavity and all instruments were removed from the abdominal cavity. The rest of incisions were reapproximated using 4-0 Monocryl in a running subcuticular fashion. Incisions were cleansed using dilute hydrogen peroxide. Liquid glue was applied to the skin. At the end of the procedure, the needle, sponge and instrument counts had been verified correct by the surgical tech. The patient had tolerated the procedure well and was taken to the postanesthesia care unit in stable condition. Intraoperative findings were described to the patient's family who were pleased with the level of care. Plan - Discharge Summary Discharge Rx Participant: Yes New Discharge Prescriptions: New RX: Tamsulosin [Flomax] 0.4 mg PO DAILY #5 cap.er.24h Acetaminophen Tab [Tylenol Tab] 1,000 mg PO Q6HR PRN #30 tablet PRN Reason: Pain Continue RX: Ergocalciferol [Vitamin D2 (DRISDOL)] 50,000 unit PO SA RX: Multivitamin [Men's Multi-Vitamin] 1 tab PO DAILY RX: Lovastatin [Mevacor] 40 mg PO HS RX: Ferrous Sulfate [Iron (65 MG Elemental)] 325 mg PO DAILY RX: Beclomethasone Dip 80 Mcg/Puff [Qvar 80 mcg] 2 puff INHALATION BID RX: Chlorthalidone [Hygroton] 12.5 mg PO DAILY RX: Calcium Carbonate [Calcium] 600 mg PO DAILY RX: Tadalafil [Cialis] 5 mg PO DAILY RX: Ibuprofen [Motrin] 600 mg PO Q8HR PRN #30 tab PRN Reason: Pain Discharge Medication List RX: Ergocalciferol [Vitamin D2 (DRISDOL)] 50,000 unit PO SA 05/12/16 [History] RX: Multivitamin [Men's Multi-Vitamin] 1 tab PO DAILY 05/12/16 [History] RX: Lovastatin [Mevacor] 40 mg PO HS 05/18/16 [History] RX: Beclomethasone Dip 80 Mcg/Puff [Qvar 80 mcg] 2 puff INHALATION BID 09/15/16 [History] RX: Ferrous Sulfate [Iron (65 MG Elemental)] 325 mg PO DAILY 09/15/16 [History] RX: Calcium Carbonate [Calcium] 600 mg PO DAILY 10/05/16 [History] RX: Chlorthalidone [Hygroton] 12.5 mg PO DAILY 10/05/16 [History] RX: Tadalafil [Cialis] 5 mg PO DAILY 07/18/18 [History] RX: Ibuprofen [Motrin] 600 mg PO Q8HR PRN #30 tab 06/15/19 [Rx] Acetaminophen Tab [Tylenol Tab] 1,000 mg PO Q6HR PRN #30 tablet 01/22/20 [Rx] RX: Tamsulosin [Flomax] 0.4 mg PO DAILY #5 cap.er.24h 01/22/20 [Rx] Follow up Appointment(s)/Referral(s): Guadalupe Moore MD [STAFF PHYSICIAN] - 01/27/20 Patient Instructions/Handouts: *Surgery [facility] - (Anesthesia) Discharge Instructions Outpatient Surgery, Lysis of Abdominal Adhesions (DC) Activity/Diet/Wound Care/Special Instructions: No lifting over 10 pounds in 2 weeks until February 04November shower. No bath tub soaks for two weeks until February 04 Diet as tolerated. No driving while on narcotics. Use Tylenol and ibuprofen or Aleve scheduled for the next 24-48 hours for best pain relief. Use ice along incisions for the today to prevent swelling. Discharge Disposition: HOME SELF-CARE
[2020-01-22] MEDS ORDERED: LACTATED RINGERS 1,000 ML IV ONE (13:30)
[2020-01-22 13:40] VITALS: PULSE 57; RESP 16
[2020-01-22 14:03] VITALS: BP 144/85
== END 2020-01-22 14:16 | disposition home or self-care (01) ==
LOC: OR 08:54
PROVIDERS: ATTEND Surgery Plastic and Reconstructive Surgery
DX: K66.0 Peritoneal adhesions (postprocedural) (postinfection) (principal); J45.909 Unspecified asthma, uncomplicated; E78.5 Hyperlipidemia, unspecified; D50.9 Iron deficiency anemia, unspecified; D45 Polycythemia vera; M19.90 Unspecified osteoarthritis, unspecified site; G43.909 Migraine, unspecified, not intractable, without status migrainosus; M85.80 Other specified disorders of bone density and structure, unspecified site; Z88.1 Allergy status to other antibiotic agents; Z79.899 Other long term (current) drug therapy; Z91.040 Latex allergy status; Z87.19 Personal history of other diseases of the digestive system; Z98.890 Other specified postprocedural states; Z91.048 Other nonmedicinal substance allergy status; Z87.891 Personal history of nicotine dependence; Z80.0 Family history of malignant neoplasm of digestive organs; Z82.49 Family history of ischemic heart disease and other diseases of the circulatory system
CPT/HCPCS: 44180; 64488; 80053; 85025; J2250; J1200; J1644; J1100 ×2; J2710; J0690; J2405; J2001; J3010; J2795; J0330; J2704